=== PATIENT | male | born 1975 | race Two or more races ===

== ENCOUNTER 2024-02-21 00:05 | Inpatient (IN) | payer OTHER ==
[~2024-02-21] VITALS: Ht 180.3 cm; Wt 97.7 kg
[2024-02-21 01:25] LABS: Basophils # (auto) 0 10 ^3/uL (0-0.2); Basophils % (auto) 0.4 % (0.0-2.0); Eosinophils # (auto) 0.2 10 ^3/uL (0-0.8); Eosinophils % (auto) 1.8 % (0.0-7.0); Hematocrit 47.7 % (41.0-53.0); Hemoglobin 15.7 g/dL (13.5-17.5); Lymphocytes # (auto) 1.7 10 ^3/uL (0.4-5.4); Lymphocytes % (auto) 18.1 % (10.0-50.0); Mean Corpuscular Hemoglobin 27.3 pg (28.0-32.0); Mean Corpuscular Hgb Conc. 32.9 g/dL (32.0-36.0); Mean Corpuscular Volume 82.9 fL (80.0-100.0); Monocytes # (auto) 0.7 10 ^3/uL (0-1.3); Monocytes % (auto) 7.4 % (0.0-12.0); Neutrophils # (auto) 6.9 10 ^3/uL (1.6-8.6); Neutrophils % (auto) 72.3 % (37.0-80.0); Nucleated Red Blood Cells % 0.1 %; Platelet Count (auto) 213 10^3/uL (140-450); Red Blood Cells 5.76 10^6/uL (4.5-5.90); Red Cell Distribution Width 18.3 % (11.8-14.3); White Blood Cell 9.6 10^3/uL (4.4-10.8)
--- NOTE | 2024-02-21 01:27 | DVH ---
Exam: CT CT AB PEL WO CON-NO ORAL OR IV History: abd pain Comparison Study: None Technique: Multidetector spiral CT of the abdomen was performed from lung bases to pubic symphysis. Imaging was performed without IV contrast. Axial, coronal and sagittal multiplanar reformats were ob tained from the axial data set by the technologist. Radiation Dose : 1. Abdomen/Pelvis: CTDIvol 10.3 mGy, DLP 597.46 mGy*cm. Findings: Evaluation of solid organs is limited due to lack of intravenous contrast use. Lung Bases: No acute or significant lung base finding. Normal heart size. No pleural or pericardial effusion. Liver: The liver is normal in size. No focal lesions. Gallbladder and Biliary Tree: Distended gallbladder measuring up to 12 cm but without stones or peric holecystic fluid. Spleen: Unremarkable Pancreas: The pancreas is grossly normal in appearance. Adrenal Glands: Unremarkable Kidneys: Kidneys are grossly normal without calculi or hydronephrosis. Bladder: Grossly unremarkable for degree of distention. Bowel: The stomach is grossly normal in appearance. Small bowel and colon are normal in caliber and d istribution. Normal appendix is visualized in the right lower quadrant without findings of appendici tis. Ascites: Absent Lymphadenopathy: No mesenteric, retroperitoneal or periportal lymphadenopathy. Abdominal Wall and Mesentery: Unremarkable. Vasculature: The visualized abdominal aorta is normal in size and caliber. Evaluation of abdominal a nd pelvic vessels is limited due to lack of intravenous contrast. Pelvic Organs: Unremarkable Musculoskeletal: No aggressive focal bony lesions, acute fractures or dislocation. IMPRESSION: 1. Distended gallbladder measuring up to 12 cm but without stones or pericholecystic fluid. Cholecyst itis is not excluded. If there is right upper quadrant pain, recommend dedicated right upper quadran t ultrasound. Radiation optimization: All CT scans at this facility use at least one of these dose optimization darren hniques: automated exposure control mA and/or kV adjustment per patient size (includes targeted exam s where dose is matched to clinical indication) or iterative reconstruction.
[2024-02-21 01:43] LABS: Alkaline Phosphatase 70 U/L (46-116); Anion Gap 7 (5-15); BUN/Creatinine Ratio 10.6 (10.0-20.0); Blood Urea Nitrogen 12 mg/dL (9-23); Calcium 9.7 mg/dL (8.7-10.4); Carbon Dioxide 28 mmol/L (20-31); Chloride 103 mmol/L (98-107); Lipase 39 U/L (12-53); Potassium 4.3 mmol/L (3.5-5.1); Sodium 138 mmol/L (136-145)
[2024-02-21 01:44] LABS: Alanine Aminotransferase 40 U/L (7-40); Albumin 4.4 g/dL (3.2-4.8); Aspartate Aminotransferase 18 U/L (13-40); Bilirubin, Total 0.4 mg/dL (0.2-1.0); Glucose 150 mg/dL (74-106); Total Protein 7.5 g/dL (5.7-8.2)
--- NOTE | 2024-02-21 02:56 | ED.PDOC ---
GI ASSESSMENT HPI Comments 49-year-old male complaining of 9/10 midepigastric pain. Patient states it started at 9:00 p.m.. Nothing makes it better, nothing makes it worse. Denies any new foods no new medications. Patient reports intermittent nausea and vomiting. No diarrhea. No prior abdominal history. No prior medical history. Chief Complaint: Abdominal Pain Time Seen by MD: 00:25 Reviewed Notes: Nurses Notes Allergies: Coded Allergies: NO KNOWN ALLERGIES (Unverified , 02/21/24) Information Source: Patient Mode of Arrival: Ambulatory Past Medical History PAST MEDICAL HISTORY: Denies Surgical History: Denies all surgeries Constitutional: denies: chills, diaphoresis, fatigue, fever, malaise, sweats, weakness, others EENTM: denies: blurred vision, double vision, ear bleeding, ear discharge, ear drainage, ear pain, ear ringing, eye pain, eye redness, hearing loss, mouth pain, mouth swelling, nasal discharge, nose bleeding, nose congestion, nose pain, photophobia, tearing, throat pain, throat swelling, voice changes, others Respiratory: denies: cough, hemoptysis, orthopnea, SOB at rest, shortness of breath, SOB with excertion, stridor, wheezing, others Cardiovascular: denies: chest pain, dizzy spells, diaphoresis, Dyspnea on exertion, edema, irregular heart beat, left arm pain, lightheadedness, palpitations, PND, syncope, others Gastrointestinal: reports: abdomen distended, abdominal pain; denies: blood streaked bowels, constipated, diarrhea, dysphagia, difficulty swallowing, hematemesis, melena, nausea, poor appetite, poor fluid intake, rectal bleeding, rectal pain, vomiting, others Genitourinary: denies: burning, dysuria, flank pain, frequency, hematuria, incontinence, penile discharge, penile sore, pain, testicle pain, testicle swelling, urgency, others Neurological: denies: dizziness, fainting, headache, left sided numbness, left sided weakness, numbness, paresthesia, pre-existing deficit, right sided numbness, right sided weakness, seizure, speech problems, tingling, tremors, weakness, others Musculoskeletal: denies: back pain, gout, joint pain, joint swelling, muscle pain, muscle stiffness, neck pain, others Integumetry: denies: bruises, change in color, change in hair/nails, dryness, laceration, lesions, lumps, rash, wounds, others Allergic/Immunocompromised: denies: Difficulty Healing, Frequent Infections, Hives, Itching, others Physical Exam General Appearance: Moderate Distress, Normal HEENT: Normal ENT Inspection, Pharynx Normal, TMs Normal Neck: Full Range of Motion, Non-Tender, Normal, Normal Inspection Respiratory: Chest Non-Tender, Lungs Clear, No Accessory Muscle Use, No Respiratory Distress, Normal Breath Sounds Cardiovascular: No Edema, No JVD, No Murmur, No Gallop, Normal Peripheral Pulses, Regular Rate/Rhythm Breast Exam: Deferred Gastrointestinal: Epigastric (Tender to palpation), No Organomegaly, No Pulsatile Mass, Normal Bowel Sounds, Soft Genitalia: Deferred Pelvic: Deferred Rectal: Deferred Extremities: No calf tenderness, Normal capillary refill, Normal inspection, Normal range of motion, Non-tender, No pedal edema Musculoskeletal : Apperance: Normal Neurologic: Alert, neurosurgeon II-XII nml as Tested, No Motor Deficits, Normal Affect, Normal Mood, No Sensory Deficits Cerebellar Function: Normal Reflexes: Normal Skin: Dry, Normal Color, Warm Lymphatic: No Adenopathy Was a procedure done? Was a procedure done?: No GI differential Dx Differential Diagnosis: Appendicitis, Cholangitis, Cholecystitis, Gastritis/PUD, Gastroenteritis X-Ray, Labs, Meds, VS Vital Signs Date Time Temp Pulse Resp B/P (MAP) Pulse Ox O2 Delivery O2 Flow Rate FiO2 02/21/24 00:25 98.4 71 70 112/70 (84) 97 Lab Test 02/21/24 03:00 02/21/24 01:18 Range/Units Urine Color Yellow Yellow Urine Clarity Turbid H Clear Urine pH 5.5 5.0-9.0 Urine Specific [place] 1.032 1.001-1.035 Urine Protein 1+ H Negative Urine Ketones Trace Negative Urine Blood Negative Negative /uL Urine Nitrite Negative Negative Urine Bilirubin Negative Negative Urine Urobilinogen Normal Negative mg/dL Urine Leukocyte Esterase Negative Negative /uL Urine RBC 2 0 - 3 /hpf Urine WBC 3 0 - 3 /hpf Urine Squamous Epithelial Cells None seen <5 /hpf Urine Calcium Oxalate Crystals Few None Seen Urine Bacteria Few H None Seen /hpf Urine Mucus Few None Seen Urine Glucose Normal Normal mg/dL White Blood Count 9.6 4.4-10.8 10^3/uL Red Blood Count 5.76 4.5-5.90 10^6/uL Hemoglobin 15.7 13.5-17.5 g/dL Hematocrit 47.7 41.0-53.0 % Mean Corpuscular Volume 82.9 80.0-100.0 fL Mean Corpuscular Hemoglobin 27.3 L 28.0-32.0 pg Mean Corpuscular Hemoglobin Concent 32.9 32.0-36.0 g/dL Red Cell Distribution Width 18.3 H 11.8-14.3 % Platelet Count 213 140-450 10^3/uL Mean Platelet Volume 7.6 6.9-10.8 fL Neutrophils (%) (Auto) 72.3 37.0-80.0 % Lymphocytes (%) (Auto) 18.1 10.0-50.0 % Monocytes (%) (Auto) 7.4 0.0-12.0 % Eosinophils (%) (Auto) 1.8 0.0-7.0 % Basophils (%) (Auto) 0.4 0.0-2.0 % Neutrophils # (Auto) 6.9 1.6-8.6 10 ^3/uL Lymphocytes # (Auto) 1.7 0.4-5.4 10 ^3/uL Monocytes # (Auto) 0.7 0-1.3 10 ^3/uL Eosinophils # (Auto) 0.2 0-0.8 10 ^3/uL Basophils # (Auto) 0 0-0.2 10 ^3/uL Nucleated Red Blood Cells 0.1 % Sodium Level 138 136-145 mmol/L Potassium Level 4.3 3.5-5.1 mmol/L Chloride Level 103 98-107 mmol/L Carbon Dioxide Level 28 20-31 mmol/L Anion Gap 7 5-15 Blood Urea Nitrogen 12 9-23 mg/dL Creatinine 1.13 0.700-1.30 mg/dL Glomerular Filtration Rate Calc 80 >90 mL/min BUN/Creatinine Ratio 10.6 10.0-20.0 Serum Glucose 150 H 74-106 mg/dL Calcium Level 9.7 8.7-10.4 mg/dL Total Bilirubin 0.4 0.2-1.0 mg/dL Aspartate Amino Transferase (AST) 18 13-40 U/L Alanine Aminotransferase (ALT) 40 7-40 U/L Alkaline Phosphatase 70 46-116 U/L Total Protein 7.5 5.7-8.2 g/dL Albumin 4.4 3.2-4.8 g/dL Lipase 39 12-53 U/L X-Ray, Labs, Meds, VS Comment CT scan shows gallbladder dilated to 12 cm Gallbladder ultrasound ordered Report given to Dr. Eng at change of shift Time of 1ST Reevaluation: 02:53 Reevaluation 1ST: Improved Patient Education/Counseling: Diagnosis, Treatment Family Education/Counseling: No Family Present Departure 1 Departure Time of Disposition: 04:54 (Patient presented with abdominal pain that was concerning for possible appendicits, gastritis, cholecystitis, colitis, gastroenteritis, sbo, or orther possible surgical emergency. Data: 1. I ordered and reviewed the result of at least 3 labs including a CBC, BMP, and Urinalysis. 2. I independently interpreted the following tests: CT Abdoment and Pelvis is concerning for cholecystitis .Risk:This patient has a high risk of morbidity due to further diagnostic testing or treatment and may suffer from an acute abdominal process disorder. Workup reveals intractable abdominal pain and p atient should be admitted for further workup. and possible expert consultation. ) Impression: Primary Impression: Cholecystitis Additional Impression: Intractable abdominal pain Disposition: ADMITTED INPATIENT Admit to: Med Surg Condition: Serious Critical Care Note Critical Care Time?: Yes Critical care comment: Intractable abdominal pain Authorized and Performed by: Rick Davis MD Total critical care time: Approximately 36 minutes Due to a high probability of clinically significant, life threatening deterioration, the patient required my highest level of preparedness to intervene emergently and I personally spent this critical care time directly and personally managing the patient. This critical care time included obtaining a history; examining the patient; pulse oximetry; ordering and review of studies; arranging urgent treatment with development of a management plan; evaluation of patient's response to treatment; frequent reassessment; and, discussions with other providers. This critical care time was performed to assess and manage the high probability of imminent, life-threatening deterioration that could result in multi-organ failure. It was exclusive of separately billable procedures and treating other patients and teaching time. Please see my other sections and the rest of the note for further information on patient assessment and treatment. Stability Stability form required: No Heart Score Heart Score: Heart Score Response (Comments) Value History N/A 0 EKG N/A 0 Age N/A 0 Risk Factors N/A 0 Troponin N/A 0 Total 0 [id number] CHIN Feb 21, 2024 02:56 RICK DAVIS MD Feb 21, 2024 04:56
[2024-02-21 04:21] LABS: Urine Bacteria FEW /hpf (None Seen); Urine Blood Negative /uL (Negative); Urine Clarity Turbid (Clear); Urine Color Yellow (Yellow); Urine Mucus FEW (None Seen); Urine Protein, UAD 1+ (Negative); Urine Specific Gravity 1.032 (1.001-1.035); Urine Urobilinogen Normal (Negative); Urine WBC 3 /hpf (0 - 3); Urine pH 5.5 (5.0-9.0)
--- NOTE | 2024-02-21 04:39 | DVH ---
Examination: GBUS CLINICAL INDICATION: RUQ pain COMPARISON: None. TECHNIQUE: Using real-time ultrasonic imaging, the abdomen was examined. FINDINGS: Liver is mildly enlarged, measuring 17.7 cm with heterogenous coarse echotexture of the liver, probab le changes of liver parenchymal disease. No evidence of intrahepatic ductal dilatation. Hepatic vei ns are patent. Main portal vein shows normal hepatopetal flow. The gallbladder is mildly distended and demonstrate hyperechoic sludge within. The gallbladder wall is not thickened and measures 1.5 mm. The common bile duct measures 5 mm. anteroposteriorly, which i s normal. Increased echogenicity of the pancreas, possibility of fatty infiltration of the pancreas. Right kidney demonstrates normal morphology and cortical echogenicity, with no evidence of stones, ma sses or hydronephrosis. Right kidney measures 10.2 cm in length. IMPRESSION: 1. Mildly distended gallbladder with hyperechoic sludge within. Normal wall thickness of the gallbl adder. No features of cholecystitis. 2. Mild hepatomegaly with heterogenous coarse echotexture of liver, probable changes of liver parenc hymal disease. 3. Increased echogenicity of the pancreas possibility of fatty infiltration of the pancreas. Electronically Signed 02/21/2024 04:38 Thomas Marks
[2024-02-21] MEDS: MORPHINE SULFATE 4 MG/ML SYR/VIAL IM ONE (05:01)
[2024-02-21] MEDS: LIDOCAINE VISCOUS 2% 15ML UD MT ONE (05:01)
[2024-02-21] MEDS: ONDANSETRON ODT 4 MG TAB PO ONE (05:02)
[2024-02-21] MEDS: MAALOX PLUS or MAALOX 30 ML PO ONE (05:02)
[2024-02-21 05:04] VITALS: PULSE 82; RESP 18; O2SAT 98
--- NOTE | 2024-02-21 05:31 | DVHHPRES ---
History of Present Illness Resident Creating Document: JACQUELYN LUNA RESIDENT History of Present Illness This is a 49 years old male with no significant past medical history presented to the ED with a chief complaint of epigastric pain and vomiting 10:00 p.m. last night prior to this admission. According to the patient epigastric pain started 10:00 p.m. which was dull aching pain ,radiate to the right subcostal region ,9/10 ,without any aggravating and relieving factor and associated with few episodes of vomiting. Patient mentioned that he had flu last week but denies any sick contact, recent traveling, eating outside food or history of peptic ulcer disease. 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 The patient also denies fever, chills, malaise, dysuria or any change in bowel and bladder habit. Past Medical History None Past Surgical History Right Knee and right shoulder replacement surgery Family History None. Past Social History Lives with Family Nonsmoker, nonalcoholic and never tried any drugs Review of Systems Constitutional: No: Fever, Chills, Sweats, Weakness, Malaise, Other Eyes: No: Pain, Vision change, Conjunctivae inflammation, Eyelid inflammation, Other, Redness ENT: No: Ear pain, Ear discharge, Nose pain, Nose discharge, Nose congestion, Mouth pain, Mouth swelling, Throat pain, Throat swelling, Other Respiratory: No: Cough, Dry, Shortness of breath, SOB with excertion, Wheezing, Hemoptysis, Pleuritic Pain, Sputum, Wheezing, Other Cardiovascular: No: Chest Pain, Palpitations, Orthopnea, Paroxysmal Noc. Dyspnea, Edema, Lt Headedness, Other Gastrointestinal: Nausea, Vomiting, Abdominal Pain; No: Diarrhea, Constipation, Melena, Hematochezia, Other Genitourinary: No Dysuria, No Frequency, No Incontinence, No Hematuria, No Retention, No Other Musculoskeletal: No: other, neck pain, shoulder pain, arm pain, back pain, hand pain, leg pain, foot pain Skin: No: Rash, Lesions, Jaundice, Bruising, Other Neurological: No: Weakness, Numbness, Incoordination, Change in speech, Confusion, Seizures, Other Allergies: Coded Allergies: NO KNOWN ALLERGIES (Unverified , 02/21/24) Medications Current Medications Medications Dose Ordered Sig/Eric Route Start Time Stop Time Status Last Admin Dose Admin Sodium Chloride 1,000 ml @ 75 mls/hr [id number] IV 02/21/24 05:30 Ceftriaxone Sodium 50 ml @ 100 mls/hr DAILY IV 02/22/24 10:00 Metronidazole 100 ml @ 100 mls/hr TID IV 02/21/24 12:00 Pantoprazole Sodium 40 mg DAILY IV 02/21/24 10:00 Ondansetron HCl 4 mg [id number] IV 02/21/24 06:00 Exam Vital Signs Vital Signs Date Time Temp Pulse Resp B/P (MAP) Pulse Ox O2 Delivery O2 Flow Rate FiO2 02/21/24 05:04 82 18 98 Room Air* 0 21 02/21/24 05:04 98.0 112/75 (87) 98.0 Exam Physical examination: General Appearance: Alert, Oriented X3, Cooperative, mild distress HEENT: Atraumatic, PERRLA, EOMI, Mucous membrane moist/pink Respiratory: Clear to auscultation, Normal air movement Cardiovascular: Regular rate, Normal S1, Normal S2, No murmurs, no chest wall tenderness Abdominal: Normal bowel sounds, Soft, tenderness present in the epigastric region, No hepatospenomegaly, No masses Extremities: No clubbing, No cyanosis, No edema, Normal pulses, No tenderness/swelling Skin: No rashes, No breakdown, No significant lesion Neuro: Normal gait, Normal speech, Strength at 5/5 X4 ext, Normal tone, Sensation intact, grossly intact cranial nerves. Psych/Mental Status: Mental status NL, Mood NL Labs/Xrays Labs Test 02/21/24 03:00 02/21/24 01:18 Range/Units Urine Color Yellow Yellow Urine Clarity Turbid H Clear Urine pH 5.5 5.0-9.0 Urine Specific [place] 1.032 1.001-1.035 Urine Protein 1+ H Negative Urine Ketones Trace Negative Urine Blood Negative Negative /uL Urine Nitrite Negative Negative Urine Bilirubin Negative Negative Urine Urobilinogen Normal Negative mg/dL Urine Leukocyte Esterase Negative Negative /uL Urine RBC 2 0 - 3 /hpf Urine WBC 3 0 - 3 /hpf Urine Squamous Epithelial Cells None seen <5 /hpf Urine Calcium Oxalate Crystals Few None Seen Urine Bacteria Few H None Seen /hpf Urine Mucus Few None Seen Urine Glucose Normal Normal mg/dL White Blood Count 9.6 4.4-10.8 10^3/uL Red Blood Count 5.76 4.5-5.90 10^6/uL Hemoglobin 15.7 13.5-17.5 g/dL Hematocrit 47.7 41.0-53.0 % Mean Corpuscular Volume 82.9 80.0-100.0 fL Mean Corpuscular Hemoglobin 27.3 L 28.0-32.0 pg Mean Corpuscular Hemoglobin Concent 32.9 32.0-36.0 g/dL Red Cell Distribution Width 18.3 H 11.8-14.3 % Platelet Count 213 140-450 10^3/uL Mean Platelet Volume 7.6 6.9-10.8 fL Neutrophils (%) (Auto) 72.3 37.0-80.0 % Lymphocytes (%) (Auto) 18.1 10.0-50.0 % Monocytes (%) (Auto) 7.4 0.0-12.0 % Eosinophils (%) (Auto) 1.8 0.0-7.0 % Basophils (%) (Auto) 0.4 0.0-2.0 % Neutrophils # (Auto) 6.9 1.6-8.6 10 ^3/uL Lymphocytes # (Auto) 1.7 0.4-5.4 10 ^3/uL Monocytes # (Auto) 0.7 0-1.3 10 ^3/uL Eosinophils # (Auto) 0.2 0-0.8 10 ^3/uL Basophils # (Auto) 0 0-0.2 10 ^3/uL Nucleated Red Blood Cells 0.1 % Sodium Level 138 136-145 mmol/L Potassium Level 4.3 3.5-5.1 mmol/L Chloride Level 103 98-107 mmol/L Carbon Dioxide Level 28 20-31 mmol/L Anion Gap 7 5-15 Blood Urea Nitrogen 12 9-23 mg/dL Creatinine 1.13 0.700-1.30 mg/dL Glomerular Filtration Rate Calc 80 >90 mL/min BUN/Creatinine Ratio 10.6 10.0-20.0 Serum Glucose 150 H 74-106 mg/dL Calcium Level 9.7 8.7-10.4 mg/dL Total Bilirubin 0.4 0.2-1.0 mg/dL Aspartate Amino Transferase (AST) 18 13-40 U/L Alanine Aminotransferase (ALT) 40 7-40 U/L Alkaline Phosphatase 70 46-116 U/L Total Protein 7.5 5.7-8.2 g/dL Albumin 4.4 3.2-4.8 g/dL Lipase 39 12-53 U/L Assessment/Plan Assessment/Plan Assessment and plan: # Abdominal pain, rule out acute cholecystitis - NPO - IV normal saline at 75 mL/hour - CT abdomen pelvis revealed distended gallbladder measuring up to 12 cm but without stones or pericholecystic fluid - U/S of GB demonstrated mildly distended gallbladder with hyperechoic sludge within - IV ondansetron 4 mg q.4 p.r.n. - IV ceftriaxone 1 g daily and IV metronidazole 500 mg t.i.d. - Consulted surgery. # PUD prophylaxis - IV Protonix 40 mg daily. Goal of care discussed with the patient for more than 20 minutes full code Plan of treatment discussed with Dr. Andrade Plan discussed with: Patient, Other My Orders Orders - JACQUELYN LUNA RESIDENT Procedure Category Date Status Time Admit ADMIT 02/21/24 Transmitted 05:17 Sodium Chloride 0.9% PHA 02/21/24 In Process 05:30 Ceftriaxone 1gm/50ml PHA 02/22/24 In Process D5w (Rocephin) 10:00 Metronidazole PHA 02/21/24 In Process 500mg/100ml (Flagyl 12:00 Pantoprazole PHA 02/21/24 In Process (Protonix) 10:00 Npo (Nothing By DIET 02/21/24 Transmitted Mouth) Diet Breakfast Ondansetron Hcl PHA 02/21/24 In Process (Zofran) 06:00 Chest Xray 1 View XY 02/21/24 Logged 05:17 PTPTT LAB 02/21/24 Logged 05:17 Blood Alcohol LAB 02/21/24 Logged 05:28 Drug Screen LAB 02/21/24 Logged 05:28 * Surgical Consult CONS 02/21/24 Transmitted Thyroid Stimulating LAB 02/21/24 Verified Hormone 05:30 Date of Service: Feb 21, 2024 Billing Provider: JAQUELINE ANDRADE MD Common Visit Codes: [id number] INP/OBS CARE (HIGH) JACQUELYN LUNA RESIDENT Feb 21, 2024 05:31 JAQUELINE ANDRADE MD Feb 21, 2024 09:59
[2024-02-21 05:59] LABS: Opiate Scree,Urine Neg (NEGATIVE); Phencyclidine Screen, Urine Neg (NEGATIVE)
--- NOTE | 2024-02-21 06:09 | DVH ---
CHEST RADIOGRAPH Indication: chest pain Technique: Single frontal view of the chest was obtained Comparison: None FINDINGS: Lines and Tubes: None Lungs: No focal consolidation. Pleura: No effusion. No pneumothorax. Cardiomediastinal contours: Unremarkable Bones: No acute osseous abnormality. IMPRESSION: 1. No acute cardiopulmonary disease.
[2024-02-21 06:17] LABS: Amphetamine Screen, Urine Neg (NEGATIVE); Barbiturate Scree,Urine Neg (NEGATIVE); Benzodiazephine Screen, Urine Neg (NEGATIVE); Cannabinoid Screen, Urine Neg (NEGATIVE); Cocaine Screen, Urine Neg (NEGATIVE)
[2024-02-21 06:18] LABS: INR 0.95 (0.9-1.15); Partial Thromboplastin Time 25.9 SEC (24.5-34.5); Prothrombin Time 10.1 sec (9.3-11.8)
[2024-02-21] MEDS: SODIUM CHLORIDE 0.9% 1,000 ML IV SCH (06:45)
[2024-02-21] MEDS: ONDANSETRON HCL 4 MG/2 ML VIAL IV SCH (07:51)
[2024-02-21] MEDS: metroNIDAZOLE 500MG/100ML 100 ML IV ONE (07:53)
[2024-02-21 08:00] VITALS: TEMP 99.5
[2024-02-21] MEDS: ceFAZolin 2 GM/D5W50ml 50 ML IV ONE (09:18)
[2024-02-21] MEDS: PANTOPRAZOLE 40 MG/10 ML VIAL INJ IV SCH (10:08)
[2024-02-21 12:00] VITALS: BP 119/70; PULSE 92; RESP 19; O2SAT 95
[2024-02-21] MEDS ORDERED: metroNIDAZOLE 500MG/100ML 100 ML IV SCH (12:00)
--- NOTE | 2024-02-21 12:53 | DVHDSRES ---
Discharge Summary Date of Admission Resident Creating Document: JACQUELYN LUNA RESIDENT Feb 21, 2024 at 05:17 Date of Discharge: Feb 21, 2024 Admitting Diagnosis Intractable abdominal pain Labs/Diagnostic Data: Laboratory Results Test 02/21/24 03:00 02/21/24 01:18 Urine Color Yellow (Yellow) Urine Clarity Turbid (Clear) Urine pH 5.5 (5.0-9.0) Urine Specific Christine 1.032 (1.001-1.035) Urine Protein 1+ (Negative) Urine Ketones Trace (Negative) Urine Blood Negative /uL (Negative) Urine Nitrite Negative (Negative) Urine Bilirubin Negative (Negative) Urine Urobilinogen Normal mg/dL (Negative) Urine Leukocyte Esterase Negative /uL (Negative) Urine RBC 2 /hpf (0 - 3) Urine WBC 3 /hpf (0 - 3) Urine Squamous Epithelial Cells None seen /hpf (<5) Urine Calcium Oxalate Crystals Few (None Seen) Urine Bacteria Few /hpf (None Seen) Urine Mucus Few (None Seen) Urine Glucose Normal mg/dL (Normal) Urine Opiates Screen Neg (NEGATIVE) Urine Fentanyl Screen Neg (NEGATIVE) Urine Barbiturates Screen Neg (NEGATIVE) Urine Phencyclidine Screen Neg (NEGATIVE) Urine Amphetamines Screen Neg (NEGATIVE) Urine Benzodiazepines Screen Neg (NEGATIVE) Urine Cocaine Screen Neg (NEGATIVE) Urine Cannabinoids Screen Neg (NEGATIVE) White Blood Count 9.6 10^3/uL (4.4-10.8) Red Blood Count 5.76 10^6/uL (4.5-5.90) Hemoglobin 15.7 g/dL (13.5-17.5) Hematocrit 47.7 % (41.0-53.0) Mean Corpuscular Volume 82.9 fL (80.0-100.0) Mean Corpuscular Hemoglobin 27.3 pg (28.0-32.0) Mean Corpuscular Hemoglobin Concent 32.9 g/dL (32.0-36.0) Red Cell Distribution Width 18.3 % (11.8-14.3) Platelet Count 213 10^3/uL (140-450) Mean Platelet Volume 7.6 fL (6.9-10.8) Neutrophils (%) (Auto) 72.3 % (37.0-80.0) Lymphocytes (%) (Auto) 18.1 % (10.0-50.0) Monocytes (%) (Auto) 7.4 % (0.0-12.0) Eosinophils (%) (Auto) 1.8 % (0.0-7.0) Basophils (%) (Auto) 0.4 % (0.0-2.0) Neutrophils # (Auto) 6.9 10 ^3/uL (1.6-8.6) Lymphocytes # (Auto) 1.7 10 ^3/uL (0.4-5.4) Monocytes # (Auto) 0.7 10 ^3/uL (0-1.3) Eosinophils # (Auto) 0.2 10 ^3/uL (0-0.8) Basophils # (Auto) 0 10 ^3/uL (0-0.2) Nucleated Red Blood Cells 0.1 % Prothrombin Time 10.1 sec (9.3-11.8) Prothrombin Time INR 0.95 (0.9-1.15) Activated Partial Thromboplast Time 25.9 SEC (24.5-34.5) Sodium Level 138 mmol/L (136-145) Potassium Level 4.3 mmol/L (3.5-5.1) Chloride Level 103 mmol/L (98-107) Carbon Dioxide Level 28 mmol/L (20-31) Anion Gap 7 (5-15) Blood Urea Nitrogen 12 mg/dL (9-23) Creatinine 1.13 mg/dL (0.700-1.30) Glomerular Filtration Rate Calc 80 mL/min (>90) BUN/Creatinine Ratio 10.6 (10.0-20.0) Serum Glucose 150 mg/dL (74-106) Calcium Level 9.7 mg/dL (8.7-10.4) Total Bilirubin 0.4 mg/dL (0.2-1.0) Aspartate Amino Transferase (AST) 18 U/L (13-40) Alanine Aminotransferase (ALT) 40 U/L (7-40) Alkaline Phosphatase 70 U/L (46-116) Total Protein 7.5 g/dL (5.7-8.2) Albumin 4.4 g/dL (3.2-4.8) Lipase 39 U/L (12-53) Thyroid Stimulating Hormone (TSH) 1.56 uIU/mL (0.55-4.78) Plasma/Serum Blood Alcohol < 3.0 mg/dL (<10) Other Laboratory Tests 02/21/24 01:18 Brief Hx & Hospital Course: This is a 49 years old male with no significant past medical history presented to the ED with a chief complaint of epigastric pain and vomiting 10:00 p.m. last night prior to this admission. According to the patient epigastric pain started 10:00 p.m. which was dull aching pain ,radiate to the right subcostal region ,9/10 ,without any aggravating and relieving factor and associated with few episodes of vomiting. Patient mentioned that he had flu last week but denies any sick contact, recent traveling, eating outside food or history of peptic ulcer disease. 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 The patient also denies fever, chills, malaise, dysuria or any change in bowel and bladder habit Hospital course: CT AP showed Distended gallbladder measuring up to 12 cm but without stones or pericholecystic fluid. Cholecystitis is not excluded. If there is right upper quadrant pain, recommend dedicated right upper quadrant ultrasound. gall bladder usg showed Mildly distended gallbladder with hyperechoic sludge within. Normal wall thickness of the gallbladder. No features of cholecystitis. Mild hepatomegaly with heterogenous coarse echotexture of liver, probable changes of liver parenchymal disease. Increased echogenicity of the pancreas possibility of fatty infiltration of the pancreas. serum lipase was 39, wbc 9.6. Patient noticed significant improvement in his abdominal pain after receiving Maalox, viscous lidocaine and IV Protonix. He appeared well, had stable vital signs and denied any active ongoing complaints or concerns. Patient was discharged on pantoprazole 40 mg for 7 days and instructed to follow up with his PCP in 1-2 weeks. His hospital course was uncomplicated. General Appearance: Cooperative. Well developed. Well nourished. NAD Head Exam: Normal inspection Neck Exam: Normal inspection. Non-tender. Normal alignment Pulmonary/Respiratory: Chest non-tender. Clear bilateral breath sounds, no crackles, no wheezing. Cardiovascular/Chest: Regular rate and rhythm. No murmurs. No JVD. Peripheral Pulses: 2+ Radial (R). 2+ Radial (L). 2+ Pedal (R). 2+ Pedal (L) Abdominal Exam: Normal bowel sounds. Soft. normal abdomen, no visible veins, Nontender. No hepatospenomegaly. No masses Ankle Exam: Negative ankle edema Lower extremities: Negative lower extremity edema Neuro/Mental Status: A&O x4. Coherent. Thoughts/Psych: Normal thought pattern. Appropriate mood and affect. Good judgement and insight Skin Exam: Normal inspection. Normal color. Warm. Dry Condition at Discharge: Good Final Diagnosis/Problems List Abdominal pain, ruled out acute cholecystitis likely fufnctional dyspepsia/gastritis Discharge Disposition: Home Discharge Instruct/Medications Diet: Regular Activity: No Restrictions, As Tolerated Follow Up/Referral: please follow up with pcp in 1-2 weeks Medications: protonix once a day for 7 days Discharge Statement: "Patient was advised to return to the ER or call 911 if any headaches, dizziness, shortness of breath, chest pain, abdominal pain, bleeding, fevers, or worsening of medical condition. Patient was counseled about treatment plan, medications, possible side effects, patientverbalized understanding. All questions were answered to the best of my ability. This discharge took greater then 30 minutes in planning, reviewing documentation, counseling the patient, and discussing with other team members." ASSESSMENT ASSESSMENT Assessment Abdominal pain, ruled out acute cholecystitis likely fufnctional dyspepsia/gastritis Date of Service: Feb 21, 2024 Billing Provider: NATALIIA ARNOLD MD Common Visit Codes: 30190-IXN/OBS DISCH DAY >30min SWAPNIL HOLLOWAY Feb 21, 2024 12:53 NATALIIA ARNOLD MD Feb 22, 2024 12:59
[2024-02-21] MEDS ORDERED: PANT40T PO (12:54)
[2024-02-22] MEDS ORDERED: cefTRIAXone 1GM/50ML D5W 50 ML IV SCH (10:00)
== END 2024-02-21 13:34 | disposition home or self-care (01) | DRG 392 ==
LOC: ER 00:05 → OVERFLOW 05:17
PROVIDERS: ADMIT Student in an Organized Health Care Education/Training Program; ATTEND Emergency Medicine
DX: K29.70 Gastritis, unspecified, without bleeding (principal); R16.0 Hepatomegaly, not elsewhere classified
CPT/HCPCS: 36415; 71045; 74176; 76705; 80053; 80307; 80320; 81001; 83690; 84443; 85025; 85610; 85730; G0378; J2405; J2470; J3490; Q0162

== ENCOUNTER 2024-09-05 03:49 | Emergency (ER) | payer OTHER ==
[~2024-09-05] VITALS: Ht 180.3 cm; Wt 101.8 kg
[~2024-09-05 03:49] MED LIST: PANT40T PO
[2024-09-05 04:06] VITALS: BP 131/70; PULSE 62; RESP 18; TEMP 98.4; O2SAT 98
[2024-09-05] MEDS ORDERED: SODIUM CHLORIDE 0.9% 1,000 ML IV ONE (04:15)
[2024-09-05] MEDS ORDERED: MORPHINE SULFATE 4 MG/ML SYR/VIAL IV ONE (04:15)
[2024-09-05] MEDS ORDERED: ONDANSETRON ODT 4 MG TAB PO ONE (04:15)
--- NOTE | 2024-09-05 04:24 | ED.PDOC ---
GI ASSESSMENT HPI Comments 49 year old male presents to ER with complaints of abdominal pain x 4 hours. Patient states he started experiencing 9/10 RUQ abdominal pain without radiation with 1 episode of nausea/vomiting 4 hours prior to arrival to ER. States he took ibuprofen for his pain without relief and presents to ER ambulatory on arrival, with steady gait, in mild distress with vitals stable. Denies fever, hematemesis, shortness of breath, chest pain, back pain, changes in urination/bm or any further symptoms/complaints Chief Complaint: Abdominal Pain Time Seen by MD: 04:08 Primary Care Provider: SIDDHARTH Reviewed Notes: Nurses Notes, Medications, Allergies Allergies: Coded Allergies: NO KNOWN ALLERGIES (Unverified , 02/21/24) Home Meds Active Scripts Pantoprazole Sodium Sesquihydr (Pantoprazole Sodium) 40 Mg Tab, 40 MG PO DAILY for 7 Days, #7 TAB Prov:JEWELSWAPNIL RESIDENT 02/21/24 Information Source: Patient Mode of Arrival: Ambulatory Past Medical History PAST MEDICAL HISTORY: Denies Surgical History (Other): Right knee surgery Right shoulder surgery Family History Family History: Unknown Social History Smoker: Non-Smoker Alcohol: Denies ETOH Use Drugs: Denies Drug Use Lives In: Home Constitutional: denies: chills, diaphoresis, fatigue, fever, malaise, sweats, weakness, others EENTM: denies: blurred vision, double vision, ear bleeding, ear discharge, ear drainage, ear pain, ear ringing, eye pain, eye redness, hearing loss, mouth pain, mouth swelling, nasal discharge, nose bleeding, nose congestion, nose pain, photophobia, tearing, throat pain, throat swelling, voice changes, others Respiratory: denies: cough, hemoptysis, orthopnea, SOB at rest, shortness of breath, SOB with excertion, stridor, wheezing, others Cardiovascular: denies: chest pain, dizzy spells, diaphoresis, Dyspnea on exertion, edema, irregular heart beat, left arm pain, lightheadedness, palpitations, PND, syncope, others Gastrointestinal: reports: others (As stated in HPI) Genitourinary: denies: burning, dysuria, flank pain, frequency, hematuria, incontinence, penile discharge, penile sore, pain, testicle pain, testicle swelling, urgency, others Neurological: denies: dizziness, fainting, headache, left sided numbness, left sided weakness, numbness, paresthesia, pre-existing deficit, right sided numbness, right sided weakness, seizure, speech problems, tingling, tremors, weakness, others Musculoskeletal: denies: back pain, gout, joint pain, joint swelling, muscle pain, muscle stiffness, neck pain, others Integumetry: denies: bruises, change in color, change in hair/nails, dryness, laceration, lesions, lumps, rash, wounds, others Allergic/Immunocompromised: denies: Difficulty Healing, Frequent Infections, Hives, Itching, others Hematologic/Lymphatic: denies: anemia, blood clots, easy bleeding, easy bruising, swollen glands, others Endocrine: denies: excessive hunger, excessive sweating, excessive thirst, excessive urination, flushing, intolerance to cold, intolerance to heat, unex plained weight gain, unexplained weight loss, others Psychiatric: denies: anxiety, bipolar disorder, depression, hopeless, panic disorder, schizophrenia, sleepless, suicidal, others Physical Exam General Appearance: Mild Distress (Due to RUQ abdominal pain), Obese HEENT: Normal ENT Inspection, PERRL/EOMI, Pharynx Normal, TMs Normal Neck: Full Range of Motion, Non-Tender, Normal Respiratory: Chest Non-Tender, Lungs Clear, No Accessory Muscle Use, No Respiratory Distress, Normal Breath Sounds Cardiovascular: No Murmur, No Gallop, Regular Rate/Rhythm Breast Exam: Deferred Gastrointestinal: No Organomegaly, No Pulsatile Mass, Normal Bowel Sounds, RUQ (TTP to right upper quadrant of abdomen noted. +Tamez's sign. No rebound/guarding noted), Soft Genitalia: Deferred Pelvic: Deferred Rectal: Deferred Extremities: Normal capillary refill, Normal range of motion Neurologic: Alert, blending tank tender II-XII nml as Tested, No Motor Deficits, No Sensory Deficits Cerebellar Function: Normal Reflexes: Normal Skin: Dry, Normal Color, Warm Lymphatic: No Adenopathy Was a procedure done? Was a procedure done?: No Sedation Sedation?: No GI differential Dx Differential Diagnosis: Cholecystitis, GI hemorrhage, Ischemic Bowel, Trauma intraabdominal X-Ray, Labs, Meds, VS Vital Signs Date Time Temp Pulse Resp B/P (MAP) Pulse Ox O2 Delivery O2 Flow Rate FiO2 09/05/24 04:06 98.4 62 18 131/70 (90) 98 98.4 Lab Test 09/05/24 04:20 09/05/24 04:08 Range/Units White Blood Count 10.5 4.4-10.8 10^3/uL Red Blood Count 5.38 4.5-5.90 10^6/uL Hemoglobin 16.3 13.5-17.5 g/dL Hematocrit 48.1 41.0-53.0 % Mean Corpuscular Volume 89.4 80.0-100.0 fL Mean Corpuscular Hemoglobin 30.4 28.0-32.0 pg Mean Corpuscular Hemoglobin Concent 34.0 32.0-36.0 g/dL Red Cell Distribution Width 14.7 H 11.8-14.3 % Platelet Count 279 140-450 10^3/uL Mean Platelet Volume 7.8 6.9-10.8 fL Neutrophils (%) (Auto) 74.9 37.0-80.0 % Lymphocytes (%) (Auto) 18.1 10.0-50.0 % Monocytes (%) (Auto) 4.8 0.0-12.0 % Eosinophils (%) (Auto) 1.7 0.0-7.0 % Basophils (%) (Auto) 0.5 0.0-2.0 % Neutrophils # (Auto) 7.8 1.6-8.6 10 ^3/uL Lymphocytes # (Auto) 1.9 0.4-5.4 10 ^3/uL Monocytes # (Auto) 0.5 0-1.3 10 ^3/uL Eosinophils # (Auto) 0.2 0-0.8 10 ^3/uL Basophils # (Auto) 0.1 0-0.2 10 ^3/uL Nucleated Red Blood Cells 0.1 % Sodium Level 138 136-145 mmol/L Potassium Level 3.7 3.5-5.1 mmol/L Chloride Level 104 98-107 mmol/L Carbon Dioxide Level 27 20-31 mmol/L Anion Gap 7 5-15 Blood Urea Nitrogen 9 9-23 mg/dL Creatinine 1.19 0.700-1.30 mg/dL Glomerular Filtration Rate Calc 75 >90 mL/min BUN/Creatinine Ratio 7.6 L 10.0-20.0 Serum Glucose 137 H 74-106 mg/dL Calcium Level 8.9 8.7-10.4 mg/dL Total Bilirubin 0.4 0.2-1.0 mg/dL Aspartate Amino Transferase (AST) 21 13-40 U/L Alanine Aminotransferase (ALT) 22 7-40 U/L Alkaline Phosphatase 60 46-116 U/L Total Protein 7.3 5.7-8.2 g/dL Albumin 4.3 3.2-4.8 g/dL Lipase 26 12-53 U/L Urine Color Yellow Yellow Urine Clarity Clear Clear Urine pH 6.0 5.0-9.0 Urine Specific [place] 1.028 1.001-1.035 Urine Protein Trace H Negative Urine Ketones 1+ H Negative Urine Blood Negative Negative /uL Urine Nitrite Negative Negative Urine Bilirubin Negative Negative Urine Urobilinogen Normal Negative mg/dL Urine Leukocyte Esterase Negative Negative /uL Urine RBC None seen 0 - 3 /hpf Urine Microscopic WBC 1 0-3 /HPF Urine Squamous Epithelial Cells None seen <5 /hpf Urine Bacteria None seen None Seen /hpf Urine Mucus Few None Seen Urine Glucose Normal Normal mg/dL PATIENT: PRISCILA COSTELLO RODRIGOACCT: [id number] UNIT: [id number] : 1975 LOC: ER ROOM / BED: / AGE / SEX: 49 / M ADM STATUS: REG ER SERVICE [id number] ORDERING PHYSICIAN: LEIDY ROMAN PROCEDURE(s): GBUS - GALLBLADDER REASON: RUQ abdominal pain ORDER NUMBER(s): [id number], ACCESSION NUMBER(s): [id number] INDICATION: RUQ abdominal pain TECHNIQUE: Multiple real-time sonographic images were obtained of the right upper quadrant. COMPARISON: US GALLBLADDER on DOS: 02/21/24 FINDINGS: The liver demonstrates homogeneous echotexture without focal mass lesions. The liver measures 18.0 cm. There is no intrahepatic ductal dilatation. The common duct measures 0.7 cm and is mildly prominent. Cholelithiasis is present. The gallbladder wall measures 0.3 cm. The right kidney measures 10.3 cm. The right kidney is normal in contour, size, and shape. The echogenicity is normal. There is no hydronephrosis. The pancreas is not well visualized due to overlying bowel gas. IMPRESSION: Cholelithiasis. Common bile duct is prominent measuring 0.7 cm. Hepatomegaly. ATED BY: GARTH HARTLEY MD DICTATED DATE/TIME: 09/05/24508 SIGNED BY: GARTH HARTLEY MD SIGNED DATE/TIME: 09/05/24508 CC: PATIENT: PRISCILA COSTELLOOACCT: [id number] UNIT: [id number] : 1975 LOC: ER ROOM / BED: / AGE / SEX: 49 / M ADM STATUS: REG ER SERVICE 041 ORDERING PHYSICIAN: LEIDY ROMAN PROCEDURE(s): ABPL - CT AB PEL WO CON-NO ORAL OR IV REASON: RUQ abdominal pain ORDER NUMBER(s): [id number], ACCESSION NUMBER(s): [id number] Exam: CT CT AB PEL WO CON-NO ORAL OR IV History: RUQ abdominal pain Comparison Study: CT CT AB PEL WO CON-NO ORAL OR IV on DOS: 02/21/24 Technique: Multidetector spiral CT of the abdomen was performed from lung bases to pubic symphysis. Imaging was performed without IV contrast. Axial, coronal and sagittal multiplanar reformats were obtained from the axial data set by the technologist. Radiation Dose : 1. Abdomen/Pelvis: CTDIvol 11.44 mGy, DLP 655.95 mGy*cm. Findings: Evaluation of solid organs is limited due to lack of intravenous contrast use. Lung Bases: No acute or significant lung base finding. Normal heart size. No pleural or pericardial effusion. Liver: The liver is normal in size. No focal lesions. Gallbladder and Biliary Tree: Moderate gallbladder distention and increased density within the fundus which may represent sludge, wall thickening or intramural mass. Spleen: Unremarkable Pancreas: The pancreas is grossly normal in appearance. Adrenal Glands: Unremarkable Kidneys: Kidneys are grossly normal without calculi or hydronephrosis. Bladder: Grossly unremarkable for degree of distention. Bowel: Small hiatal hernia. The stomach is grossly normal in appearance. Small bowel and colon are normal in caliber and distribution. The appendix is normal. Ascites: Absent Lymphadenopathy: No mesenteric, retroperitoneal or periportal lymphadenopathy. Abdominal Wall and Mesentery: Unremarkable. Vasculature: The visualized abdominal aorta is normal in size and caliber. Evaluation of abdominal and pelvic vessels is limited due to lack of intravenous contrast. Pelvic Organs: Unremarkable. Fat containing bilateral inguinal hernias. Musculoskeletal: No aggressive focal bony lesions, acute fractures or dislocation. IMPRESSION: 1. Moderate gallbladder distention and increased density within the gallbladder fundus. Considerations include immobile sludge, wall thickening and intramural mass. Right upper quadrant ultrasound may be of further benefit. Radiation optimization: All CT scans at this facility use at least one of these dose optimization techniques: automated exposure control mA and/or kV adjustment per patient size (includes targeted exams where dose is matched to clinical indication) or iterative reconstruction. ATED BY: PHONG MAYFIELD MD DICTATED DATE/TIME: 09/05/24450 SIGNED BY: PHONG MAYFIELD MD SIGNED DATE/TIME: 09/05/24450 CC: CBC reviewed - unremarkable CMP reviewed without any significant abnormalities CT abdomen/pelvis w/o contrast reviewed Gallbladder ultrasound reviewed Hep-lock IV ordered Morphine 4 mg IV ordered Protonix 40 mg IV ordered Zofran 4 mg PO ordered Rocephin 1 g IV ordered Metronidazole 500 mg IV ordered Patient presents with 9/10 RUQ abdominal pain and gallbladder ultrasound reveals cholelithiasis with common bile duct dilation Patient put up for admission orders to hospitalist for need for GI consult, pain control and r/o choledocholithiasis Images Reviewed?: Images reviewed and evaluated by me Time of 1ST Reevaluation: 04:22 Reevaluation 1ST: N/A Patient Education/Counseling: Diagnosis, Treatment, Prognosis, Need For Follow Up Family Education/Counseling: No Family Present SEPSIS Sepsis Screen Date sepsis recognized/suspect: Sep 05, 2024 Time Sepsis recognized/suspect: 0 Recent Procedure: No On Antibiotic Therapy: No Respiratory Rate >20: No Heart Rate >90: No Temp<36 C (96.8 F) or >38.3 C: No SBP <90 or MAP <65 mmHG: No New Acute Mental Status Change: No Is the patient on CPAP, BIPAP,: No Physician Orders Gallbladder (09/05/24 04:08) Heplock Iv (09/05/24 ) Ct Ab Pel Wo Con-No Oral Or Iv (09/05/24 04:13) Vital Signs Date Time Temp Pulse Resp B/P (MAP) Pulse Ox O2 Delivery O2 Flow Rate FiO2 09/05/24 04:06 98.4 62 18 131/70 (90) 98 98.4 Laboratory Tests Test 09/05/24 04:20 White Blood Count 10.5 10^3/uL (4.4-10.8) Departure 1 Departure Time of Disposition: 05:32 Impression: Primary Impression: Cholelithiasis Qualified Codes: K80.40 - Calculus of bile duct with cholecystitis, unspecified, without obstruction Additional Impressions: Intractable abdominal pain Common bile duct dilatation Disposition: ADMITTED INPATIENT Condition: Stable Critical Care Note Critical Care Time?: No Stability Stability form required: No Heart Score Heart Score: Heart Score Response (Comments) Value History N/A 0 EKG N/A 0 Age N/A 0 Risk Factors N/A 0 Troponin N/A 0 Total 0 LEIDY ROMAN Sep 05, 2024 04:24
[2024-09-05] MEDS ORDERED: PANTOPRAZOLE 40 MG/10 ML VIAL INJ IV ONE (04:30)
[2024-09-05 04:37] LABS: Hematocrit 48.1 % (41.0-53.0); Hemoglobin 16.3 g/dL (13.5-17.5); Mean Corpuscular Hemoglobin 30.4 pg (28.0-32.0); Mean Corpuscular Volume 89.4 fL (80.0-100.0); Nucleated Red Blood Cells % 0.1 %
--- NOTE | 2024-09-05 04:54 | DVH ---
Exam: CT CT AB PEL WO CON-NO ORAL OR IV History: RUQ abdominal pain Comparison Study: CT CT AB PEL WO CON-NO ORAL OR IV on DOS: 02/21/24 Technique: Multidetector spiral CT of the abdomen was performed from lung bases to pubic symphysis. I maging was performed without IV contrast. Axial, coronal and sagittal multiplanar reformats were obta ined from the axial data set by the technologist. Radiation Dose : 1. Abdomen/Pelvis: CTDIvol 11.44 mGy, DLP 655.95 mGy*cm. Findings: Evaluation of solid organs is limited due to lack of intravenous contrast use. Lung Bases: No acute or significant lung base finding. Normal heart size. No pleural or pericardial effusion. Liver: The liver is normal in size. No focal lesions. Gallbladder and Biliary Tree: Moderate gallbladder distention and increased density within the fundus which may represent sludge, wall thickening or intramural mass. Spleen: Unremarkable Pancreas: The pancreas is grossly normal in appearance. Adrenal Glands: Unremarkable Kidneys: Kidneys are grossly normal without calculi or hydronephrosis. Bladder: Grossly unremarkable for degree of distention. Bowel: Small hiatal hernia. The stomach is grossly normal in appearance. Small bowel and colon are no rmal in caliber and distribution. The appendix is normal. Ascites: Absent Lymphadenopathy: No mesenteric, retroperitoneal or periportal lymphadenopathy. Abdominal Wall and Mesentery: Unremarkable. Vasculature: The visualized abdominal aorta is normal in size and caliber. Evaluation of abdominal a nd pelvic vessels is limited due to lack of intravenous contrast. Pelvic Organs: Unremarkable. Fat containing bilateral inguinal hernias. Musculoskeletal: No aggressive focal bony lesions, acute fractures or dislocation. IMPRESSION: 1. Moderate gallbladder distention and increased density within the gallbladder fundus. Consideratio ns include immobile sludge, wall thickening and intramural mass. Right upper quadrant ultrasound may be of further benefit. Radiation optimization: All CT scans at this facility use at least one of these dose optimization darren hniques: automated exposure control mA and/or kV adjustment per patient size (includes targeted exam s where dose is matched to clinical indication) or iterative reconstruction.
--- NOTE | 2024-09-05 05:12 | DVH ---
INDICATION: RUQ abdominal pain TECHNIQUE: Multiple real-time sonographic images were obtained of the right upper quadrant. COMPARISON: US GALLBLADDER on DOS: 02/21/24 FINDINGS: The liver demonstrates homogeneous echotexture without focal mass lesions. The liver measures 18.0 cm . There is no intrahepatic ductal dilatation. The common duct measures 0.7 cm and is mildly prominent. Cholelithiasis is present. The gallbladder wall measures 0.3 cm. The right kidney measures 10.3 cm. The right kidney is normal in contour, size, and shape. The echoge nicity is normal. There is no hydronephrosis. The pancreas is not well visualized due to overlying bowel gas. IMPRESSION: Cholelithiasis. Common bile duct is prominent measuring 0.7 cm. Hepatomegaly.
[2024-09-05 05:33] LABS: Alanine Aminotransferase 22 U/L (7-40); Albumin 4.3 g/dL (3.2-4.8); Alkaline Phosphatase 60 U/L (46-116); Anion Gap 7 (5-15); BUN/Creatinine Ratio 7.6 (10.0-20.0); Bilirubin, Total 0.4 mg/dL (0.2-1.0); Calcium 8.9 mg/dL (8.7-10.4); Carbon Dioxide 27 mmol/L (20-31); Chloride 104 mmol/L (98-107); Lipase 26 U/L (12-53); Potassium 3.7 mmol/L (3.5-5.1); Sodium 138 mmol/L (136-145); Total Protein 7.3 g/dL (5.7-8.2)
[2024-09-05 05:45] LABS: Blood Urea Nitrogen 9 mg/dL (9-23); Glucose 137 mg/dL (74-106)
[2024-09-05 06:33] LABS: Urine Protein, UAD TRACE (Negative)
== END 2024-09-05 09:30 | disposition left against medical advice (07) ==
LOC: ER 03:49
DX: K80.20 Calculus of gallbladder without cholecystitis without obstruction (principal); R10.31 Right lower quadrant pain; K82.8 Other specified diseases of gallbladder; Z79.899 Other long term (current) drug therapy
CPT/HCPCS: 36415; 74176; 76705; 80053; 81001; 83690; 85025

== ENCOUNTER 2024-09-18 03:10 | Inpatient (IN) | payer OTHER ==
[~2024-09-18] VITALS: Ht 180.3 cm; Wt 104.0 kg
--- NOTE | 2024-09-18 03:58 | ED.PDOC ---
History of Present Illness HPI Comments 49 y/o M presents with c/c epigastric abdominal pain, that radiates to his back, with associated nausea and vomiting. Patient endorses on sudden and unprovoked onset of symptoms at 0000, this morning. Pain has been progressively worsening since then. No reported medication use prior to arrival. He reports 2x prior visits in February 20, 2025 and September 05, 2024 for same symptoms, with the latter findings showing gallstones without obstruction. No recent known injuries, sick contact, spoiled food consumption, illicit substance use, or lifestyle changes endorsed. Patient denies on having any bloody or bilious vomitus, diarrhea, constipation, urinary symptoms, fever, chills, or further associated symptoms. Upon arrival to ED triage, patient was found hypertensive at 154/85. No history of HTN. Time Seen by MD: 03:40 Primary Care Provider: SIDDHARTH Huber Notes: Nurses Notes, Medications, Allergies Allergies: Coded Allergies: NO KNOWN ALLERGIES (Unverified , 02/21/24) Home Meds Active Scripts Pantoprazole Sodium Sesquihydr (Pantoprazole Sodium) 40 Mg Tab, 40 MG PO DAILY for 7 Days, #7 TAB Prov:JEWELSWAPNIL RESIDENT 02/21/24 Information Source: Patient Mode of Arrival: Ambulatory Severity: Moderate Timing: Hours Duration: Since onset Prehospital treatment: None Past Medical History PAST MEDICAL HISTORY: Gallstones Surgical History (Other): Right Knee and right shoulder replacement surgery Family History Family History: Unknown Social History Smoker: Non-Smoker Alcohol: Denies ETOH Use Drugs: Denies Drug Use Lives In: Home All Other Systems: Reviewed and Negative (Comprehensive systems review obtained and negative except for what is stated in the HPI.) Physical Exam General Appearance: Moderate Distress, Normal HEENT: Normal ENT Inspection, Pharynx Normal, TMs Normal Neck: Full Range of Motion, Non-Tender, Normal, Normal Inspection Respiratory: Chest Non-Tender, Lungs Clear, No Accessory Muscle Use, No Respiratory Distress, Normal Breath Sounds Cardiovascular: No Edema, No JVD, No Murmur, No Gallop, Normal Peripheral Pulses, Regular Rate/Rhythm Breast Exam: Deferred Gastrointestinal: Epigastric (tenderness ), No Organomegaly, No Pulsatile Mass, Normal Bowel Sounds, Soft, Tenderness (epigastric region ) Genitalia: Deferred Pelvic: Deferred Rectal: Deferred Extremities: No calf tenderness, Normal capillary refill, Normal inspection, Normal range of motion, Non-tender, No pedal edema Musculoskeletal : Apperance: Normal Neurologic: Alert, 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 Was a procedure done?: No Differential Dx Considerations may include: Cholelithiasis, cholecystitis, gastritis, gastroenteritis, GERD, PUD, spoiled food, viral syndrome, among others. X-Ray, Labs, Meds, VS Vital Signs Date Time Temp Pulse Resp B/P (MAP) Pulse Ox O2 Delivery O2 Flow Rate FiO2 09/18/24 04:10 66 19 154/85 09/18/24 03:35 98.1 66 19 154/85 (108) 97 98.1 Lab Test 09/18/24 04:05 Range/Units White Blood Count 17.0 H 4.4-10.8 10^3/uL Red Blood Count 5.38 4.5-5.90 10^6/uL Hemoglobin 16.7 13.5-17.5 g/dL Hematocrit 48.5 41.0-53.0 % Mean Corpuscular Volume 90.1 80.0-100.0 fL Mean Corpuscular Hemoglobin 31.1 28.0-32.0 pg Mean Corpuscular Hemoglobin Concent 34.5 32.0-36.0 g/dL Red Cell Distribution Width 15.0 H 11.8-14.3 % Platelet Count 351 140-450 10^3/uL Mean Platelet Volume 8.6 6.9-10.8 fL Neutrophils (%) (Auto) 67.6 37.0-80.0 % Lymphocytes (%) (Auto) 25.4 10.0-50.0 % Monocytes (%) (Auto) 6.0 0.0-12.0 % Eosinophils (%) (Auto) 0.7 0.0-7.0 % Basophils (%) (Auto) 0.3 0.0-2.0 % Neutrophils # (Auto) 11.5 H 1.6-8.6 10 ^3/uL Lymphocytes # (Auto) 4.3 0.4-5.4 10 ^3/uL Monocytes # (Auto) 1.0 0-1.3 10 ^3/uL Eosinophils # (Auto) 0.1 0-0.8 10 ^3/uL Basophils # (Auto) 0.1 0-0.2 10 ^3/uL Nucleated Red Blood Cells 0.1 % Sodium Level 141 136-145 mmol/L Potassium Level 3.4 L 3.5-5.1 mmol/L Chloride Level 105 98-107 mmol/L Carbon Dioxide Level 26 20-31 mmol/L Anion Gap 10 5-15 Blood Urea Nitrogen 7 L 9-23 mg/dL Creatinine 1.10 0.700-1.30 mg/dL Glomerular Filtration Rate Calc 83 >90 mL/min BUN/Creatinine Ratio 6.4 L 10.0-20.0 Serum Glucose 143 H 74-106 mg/dL Calcium Level 9.1 8.7-10.4 mg/dL Total Bilirubin 0.4 0.2-1.0 mg/dL Aspartate Amino Transferase (AST) 23 13-40 U/L Alanine Aminotransferase (ALT) 25 7-40 U/L Alkaline Phosphatase 61 46-116 U/L Total Protein 7.6 5.7-8.2 g/dL Albumin 4.7 3.2-4.8 g/dL Lipase 28 12-53 U/L Current Medications Medications (Trade) Dose Ordered Sig/Eric Route Start Time Stop Time Status Last Admin Sodium Chloride 1,000 ml @ 1,000 mls/hr Q1H ONCE IV 09/18/24 03:45 09/18/24 04:44 DC 09/18/24 04:09 Ondansetron HCl (Zofran) 4 mg ONCE ONCE IV 09/18/24 03:45 09/18/24 03:47 DC 09/18/24 04:09 Morphine Sulfate 4 mg ONCE ONCE IV 09/18/24 03:45 09/18/24 03:47 DC 09/18/24 04:10 Pantoprazole Sodium (Protonix) 40 mg ONCE ONCE IV 09/18/24 03:45 09/18/24 03:47 DC 09/18/24 04:09 Piperacillin Sod/ Tazobactam Sod 100 ml @ 100 mls/hr ONCE ONCE IV 09/18/24 05:30 09/18/24 06:29 DC 09/18/24 06:09 Patient alert. Came in because of abdominal pain. Vitals stable. Answering questions. Possible sepsis. Establish intravenous access. Was given fluids pain Was given pain medication. Was given Zofran. Lipase within normal limits. Continues to have abdominal pain. Blood sugar elevated. HIDA scan. Explained to the patient. Continue monitoring. Possible acute cholecystitis. Time of 1ST Reevaluation: 04:20 Reevaluation 1ST: Unchanged Patient Education/Counseling: Diagnosis, Treatment Family Education/Counseling: No Family Present Additional Information Previous visits reviewed: February 21, 2024 and September 05, 2024 encounters for abdominal pain and cholelithiasis, respectively. The following tests were ordered, and results were reviewed by me: CT abdomen/pelvis w/IV contrast, Lipase, CMP, CBC Additional Information was gathered from interviewing the following independent historians: N/A I reviewed and agreed with the following test results read by other providers: CT abdomen/pelvis w/IV contrast I discussed treatment and results with medical personnel and: patient SEPSIS Sepsis Screen Physician Orders Ct Ab Pel With Iv Con Only (09/18/24 03:45) Nm Hida Scan (09/18/24 07:44) Abdomen Complete Sonogram (09/18/24 07:48) Vital Signs Date Time Temp Pulse Resp B/P (MAP) Pulse Ox O2 Delivery O2 Flow Rate FiO2 09/18/24 04:10 66 19 154/85 09/18/24 03:35 98.1 66 19 154/85 (108) 97 98.1 Laboratory Tests Test 09/18/24 04:05 White Blood Count 17.0 10^3/uL (4.4-10.8) H Medications Medications Dose Ordered Sig/Eric Route Start Time Stop Time Status Last Admin Dose Admin Morphine Sulfate 4 mg ONCE ONCE IV 09/18/24 03:45 09/18/24 03:47 DC 09/18/24 04:10 Ondansetron HCl 4 mg ONCE ONCE IV 09/18/24 03:45 09/18/24 03:47 DC 09/18/24 04:09 Pantoprazole Sodium 40 mg ONCE ONCE IV 09/18/24 03:45 09/18/24 03:47 DC 09/18/24 04:09 Piperacillin Sod/ Tazobactam Sod 100 ml @ 100 mls/hr ONCE ONCE IV 09/18/24 05:30 09/18/24 06:29 DC 09/18/24 06:09 Sodium Chloride 1,000 ml @ 1,000 mls/hr Q1H ONCE IV 09/18/24 03:45 09/18/24 04:44 DC 09/18/24 04:09 Departure 1 Departure Time of Disposition: 07:43 Impression: Primary Impression: Sepsis, unspecified organism Qualified Codes: A41.9 - Sepsis, unspecified organism Additional Impressions: Cholelithiasis Qualified Codes: K80.80 - Other cholelithiasis without obstruction Intractable abdominal pain Disposition: ADMITTED INPATIENT Admit to: Med Surg Condition: Guarded Critical Care Note Critical Care Time?: No Stability Stability form required: No Heart Score Heart Score: Heart Score Response (Comments) Value History N/A 0 EKG N/A 0 Age N/A 0 Risk Factors N/A 0 Troponin N/A 0 Total 0 I personally scribed for MAURY ALEXANDRE MD ([email or web address]) on 09/18/24 at 03:58. Electronically submitted by Santi Silva ([email or web address]). MAURY ALEXANDRE MD Sep 18, 2024 03:58 LORNA JORGENSEN MD Sep 18, 2024 07:43
[2024-09-18] MEDS: SODIUM CHLORIDE 0.9% 1,000 ML IV ONE ×3 (04:09→09:41)
[2024-09-18] MEDS: PANTOPRAZOLE 40 MG/10 ML VIAL INJ IV ONE (04:09)
[2024-09-18] MEDS: ONDANSETRON HCL 4 MG/2 ML VIAL IV ONE ×2 (04:09→09:55)
[2024-09-18] MEDS: MORPHINE SULFATE 4 MG/ML SYR/VIAL IV ONE (04:10)
[2024-09-18 05:12] LABS: Hematocrit 48.5 % (41.0-53.0); Hemoglobin 16.7 g/dL (13.5-17.5); Mean Corpuscular Hemoglobin 31.1 pg (28.0-32.0); Mean Corpuscular Volume 90.1 fL (80.0-100.0); Nucleated Red Blood Cells % 0.1 %
[2024-09-18 05:16] LABS: Alanine Aminotransferase 25 U/L (7-40); Albumin 4.7 g/dL (3.2-4.8); Alkaline Phosphatase 61 U/L (46-116); Anion Gap 10 (5-15); BUN/Creatinine Ratio 6.4 (10.0-20.0); Bilirubin, Total 0.4 mg/dL (0.2-1.0); Blood Urea Nitrogen 7 mg/dL (9-23); Calcium 9.1 mg/dL (8.7-10.4); Carbon Dioxide 26 mmol/L (20-31); Chloride 105 mmol/L (98-107); Glucose 143 mg/dL (74-106); Lipase 28 U/L (12-53); Potassium 3.4 mmol/L (3.5-5.1); Sodium 141 mmol/L (136-145); Total Protein 7.6 g/dL (5.7-8.2)
[2024-09-18] MEDS: IOHEXOL 300 MG/ML 100ML BOTTLE IJ ONE (05:36)
--- NOTE | 2024-09-18 06:00 | DVH ---
Exam: CT CT AB PEL WITH IV CON ONLY History: abdominal pain COMPARISON: None Technique: Multidetector spiral CT of the abdomen and pelvis was performed from lung bases to pubic s ymphysis. Intravenous contrast was administered during this examination. Portal venous imaging was o btained. Axial, coronal and sagittal multiplanar reformats were performed by the technologist on a [employer] workstation. Radiation Dose : 1. Abdomen/Pelvis: CTDIvol 19 mGy, DLP 998 mGy*cm. Findings: Lung Bases: No acute or significant lung base finding. Normal heart size. No pleural or pericardial effusion. Liver: Hepatomegaly. Gallbladder and Biliary Tree: Unremarkable Spleen: Unremarkable Pancreas: The pancreas is normal in appearance without focal lesions or abnormal enhancement. Adrenal Glands: Unremarkable Kidneys: No hydronephrosis. Bladder: Unremarkable Bowel: The stomach is grossly normal in appearance. Diverticulosis. Mild bowel wall thickening of the descending colon. The appendix is not visualized; however, no secondary findings of acute appendicit is identified. Ascites: Absent Lymphadenopathy: No mesenteric, retroperitoneal or periportal lymphadenopathy. Abdominal Wall and Mesentery: Small fat containing left inguinal hernia Vasculature: The visualized abdominal aorta is normal in size and caliber. Abdominal and pelvic vess els demonstrate normal enhancement. Pelvic Organs: Unremarkable Musculoskeletal: No aggressive focal bony lesions, acute fractures or dislocation. Degenerative saul es of the spine. IMPRESSION: Mild bowel wall thickening of the descending colon. This may be related to mild colitis or under dis tention of bowel loops. Otherwise, no acute findings.
[2024-09-18] MEDS: PIPERACILLIN-TAZO 4.5GM 100 ML IV ONE (06:09)
[2024-09-18] MEDS ORDERED: NITROGLYCERIN 0.4 MG SL TAB SL PRN (08:00)
[2024-09-18] MEDS ORDERED: DOCUSATE SOD 100 MG CAP PO PRN (08:00)
[2024-09-18] MEDS ORDERED: ONDANSETRON HCL 4 MG/2 ML VIAL IV PRN (08:00)
[2024-09-18] MEDS ORDERED: MORPHINE SULFATE INJ 2 MG/ml SYRG IV PRN (08:00)
[2024-09-18] MEDS ORDERED: ACETAMINOPHEN 325 MG TAB PO PRN (08:00)
[2024-09-18] MEDS ORDERED: ATOR40TA52 PO (08:04)
--- NOTE | 2024-09-18 08:11 | DVHHP2 ---
History of Present Illness Reason for Visit: Abdominal pain History of Present Illness Scott Ellington is a 49-year-old male with past medical history of hyperlipidemia who came to the hospital for abdominal pain. Patient states he has been experiencing gallbladder attacks since January 2024. He was seen at this facility in January 2024, and earlier this month for similar complaints. In July he had a similar attack, but it only lasted about 1 hour so he did not come to the hospital. Each time his pain resolved so he was discharged home. Today his pain is not improving and he has leukocytosis. When he was here September 05, 2024, an ultrasound showed cholelithiasis. Patient states he last ate about 1900 last night, he had tacos. His pain began about midnight and has not subsided or improved at all. He has had a couple episodes of vomiting and continues to be nauseated. Cardiovascular: hyperipidemia Past Surgical History: Other (right shoulder surgery), Total knee replacement (right) Smoke: No ALCOHOL: occassional Drugs: None Lives: with Family Domestic Violence: Neg Review of Systems Constitutional: No: Fever, Chills, Sweats, Weakness, Malaise, Other Eyes: No: Pain, Vision change, Conjunctivae inflammation, Eyelid inflammation, Other, Redness ENT: No: Ear pain, Ear discharge, Nose pain, Nose discharge, Nose congestion, Mouth pain, Mouth swelling, Throat pain, Throat swelling, Other Respiratory: No: Cough, Dry, Shortness of breath, SOB with excertion, Wheezing, Hemoptysis, Pleuritic Pain, Sputum, Wheezing, Other Cardiovascular: No: Chest Pain, Palpitations, Orthopnea, Paroxysmal Noc. Dyspnea, Edema, Lt Headedness, Other Gastrointestinal: Nausea, Vomiting, Abdominal Pain; No: Diarrhea, Constipation, Melena, Hematochezia, Other Genitourinary: No Dysuria, No Frequency, No Incontinence, No Hematuria, No Retention, No Other Musculoskeletal: No: other, neck pain, shoulder pain, arm pain, back pain, hand pain, leg pain, foot pain Skin: No: Rash, Lesions, Jaundice, Bruising, Other Neurological: No: Weakness, Numbness, Incoordination, Change in speech, Confusion, Seizures, Other Allergies: Coded Allergies: NO KNOWN ALLERGIES (Unverified , 02/21/24) Exam Vital Signs Vital Signs Date Time Temp Pulse Resp B/P (MAP) Pulse Ox O2 Delivery O2 Flow Rate FiO2 09/18/24 04:10 66 19 154/85 09/18/24 03:35 98.1 97 98.1 General Appearance: Alert, Oriented X3, Cooperative, moderate distress HEENT: Atraumatic, PERRLA Respiratory: Clear to auscultation, Normal air movement Cardiovascular: Regular rate, Normal S1, Normal S2, No murmurs Abdominal: Normal bowel sounds, Soft, Other (epigastric and RUQ pain, nausea/vomiting) Extremities: No clubbing, No cyanosis, No edema, Normal pulses, No tenderness/s welling Skin: No rashes, No breakdown, No significant lesion Neuro: Normal gait, Normal speech, Strength at 5/5 X4 ext, Normal tone Psych/Mental Status: Mental status NL, Mood NL Labs/Xrays Labs Test 09/18/24 04:05 Range/Units White Blood Count 17.0 H 4.4-10.8 10^3/uL Red Blood Count 5.38 4.5-5.90 10^6/uL Hemoglobin 16.7 13.5-17.5 g/dL Hematocrit 48.5 41.0-53.0 % Mean Corpuscular Volume 90.1 80.0-100.0 fL Mean Corpuscular Hemoglobin 31.1 28.0-32.0 pg Mean Corpuscular Hemoglobin Concent 34.5 32.0-36.0 g/dL Red Cell Distribution Width 15.0 H 11.8-14.3 % Platelet Count 351 140-450 10^3/uL Mean Platelet Volume 8.6 6.9-10.8 fL Neutrophils (%) (Auto) 67.6 37.0-80.0 % Lymphocytes (%) (Auto) 25.4 10.0-50.0 % Monocytes (%) (Auto) 6.0 0.0-12.0 % Eosinophils (%) (Auto) 0.7 0.0-7.0 % Basophils (%) (Auto) 0.3 0.0-2.0 % Neutrophils # (Auto) 11.5 H 1.6-8.6 10 ^3/uL Lymphocytes # (Auto) 4.3 0.4-5.4 10 ^3/uL Monocytes # (Auto) 1.0 0-1.3 10 ^3/uL Eosinophils # (Auto) 0.1 0-0.8 10 ^3/uL Basophils # (Auto) 0.1 0-0.2 10 ^3/uL Nucleated Red Blood Cells 0.1 % Sodium Level 141 136-145 mmol/L Potassium Level 3.4 L 3.5-5.1 mmol/L Chloride Level 105 98-107 mmol/L Carbon Dioxide Level 26 20-31 mmol/L Anion Gap 10 5-15 Blood Urea Nitrogen 7 L 9-23 mg/dL Creatinine 1.10 0.700-1.30 mg/dL Glomerular Filtration Rate Calc 83 >90 mL/min BUN/Creatinine Ratio 6.4 L 10.0-20.0 Serum Glucose 143 H 74-106 mg/dL Calcium Level 9.1 8.7-10.4 mg/dL Total Bilirubin 0.4 0.2-1.0 mg/dL Aspartate Amino Transferase (AST) 23 13-40 U/L Alanine Aminotransferase (ALT) 25 7-40 U/L Alkaline Phosphatase 61 46-116 U/L Total Protein 7.6 5.7-8.2 g/dL Albumin 4.7 3.2-4.8 g/dL Lipase 28 12-53 U/L Exam: CT CT AB PEL WITH IV CON ONLY Findings: Lung Bases: No acute or significant lung base finding. Normal heart size. No pleural or pericardial effusion. Liver: Hepatomegaly. Gallbladder and Biliary Tree: Unremarkable Spleen: Unremarkable Pancreas: The pancreas is normal in appearance without focal lesions or abnormal enhancement. Adrenal Glands: Unremarkable Kidneys: No hydronephrosis. Bladder: Unremarkable Bowel: The stomach is grossly normal in appearance. Diverticulosis. Mild bowel wall thickening of the descending colon. The appendix is not visualized; however, no secondary findings of acute appendicitis identified. Ascites: Absent Lymphadenopathy: No mesenteric, retroperitoneal or periportal lymphadenopathy. Abdominal Wall and Mesentery: Small fat containing left inguinal hernia Vasculature: The visualized abdominal aorta is normal in size and caliber. Abdominal and pelvic vessels demonstrate normal enhancement. Pelvic Organs: Unremarkable Musculoskeletal: No aggressive focal bony lesions, acute fractures or dislocation. Degenerative changes of the spine. IMPRESSION: Mild bowel wall thickening of the descending colon. This may be related to mild colitis or under distention of bowel loops. Otherwise, no acute findings. SEPSIS Sepsis Screen Date sepsis recognized/suspect: Sep 18, 2024 Time Sepsis recognized/suspect: 0335 Recent Procedure: No On Antibiotic Therapy: No Respiratory Rate >20: No Heart Rate >90: No Temp<36 C (96.8 F) or >38.3 C: No SBP <90 or MAP <65 mmHG: No New Acute Mental Status Change: No Is the patient on CPAP, BIPAP,: No Physician Orders Ct Ab Pel With Iv Con Only (09/18/24 03:45) Nm Hida Scan (09/18/24 07:44) Abdomen Complete Sonogram (09/18/24 07:48) Hydromorphone Injection (Dilaudid Inject (09/18/24 08:00) Ondansetron Hcl (Zofran) (09/18/24 08:00) Metronidazole 500mg/100ml (Flagyl 500mg/ (09/18/24 08:00) Sodium Chloride 0.9% (09/18/24 08:00) Sodium Chloride 0.9% (09/18/24 08:00) Admit (09/18/24 07:52) Code Status (09/18/24 07:52) 0.9% Ns 1000 Ml (09/18/24 08:00) Hydrocodone-Acet 5/325mg Tab ([place] 5/32 (09/18/24 08:00) Ondansetron Hcl (Zofran) (09/18/24 08:00) Docusate Sodium Capsule (Colace Capsule) (09/18/24 08:00) Complete Blood Count (09/19/24 04:00) Comprehensive Metabolic Panel (09/19/24 04:00) Npo (Nothing By Mouth) Diet (09/18/24 Breakfast) Condition: Serious (09/18/24 07:52) Acetaminophen Tablet (Tylenol Tablet) (09/18/24 08:00) Morphine Sulfate Injection (09/18/24 08:00) Nitroglycerin Sublingual (Ntrostat Subli (09/18/24 08:00) Morphine Sulfate Injection (09/18/24 08:00) Stat Ekg For Chest Pain (09/18/24 07:52) Emergency Dysrhythmia Protocol (09/18/24 07:52) Oxygen By Nasal Cannula (09/18/24 07:52) * Surgical Consult (09/18/24 ) Vital Signs Date Time Temp Pulse Resp B/P (MAP) Pulse Ox O2 Delivery O2 Flow Rate FiO2 09/18/24 04:10 66 19 154/85 09/18/24 03:35 98.1 66 19 154/85 (108) 97 98.1 Laboratory Tests Test 09/18/24 04:05 White Blood Count 17.0 10^3/uL (4.4-10.8) H Medications Medications Dose Ordered Sig/Eric Route Start Time Stop Time Status Last Admin Dose Admin Morphine Sulfate 4 mg ONCE ONCE IV 09/18/24 03:45 09/18/24 03:47 DC 09/18/24 04:10 4 MG Ondansetron HCl 4 mg ONCE ONCE IV 09/18/24 03:45 09/18/24 03:47 DC 09/18/24 04:09 4 MG Pantoprazole Sodium 40 mg ONCE ONCE IV 09/18/24 03:45 09/18/24 03:47 DC 09/18/24 04:09 40 MG Piperacillin Sod/ Tazobactam Sod 100 ml @ 100 mls/hr ONCE ONCE IV 09/18/24 05:30 09/18/24 06:29 DC 09/18/24 06:09 100 MLS/HR Sodium Chloride 1,000 ml @ 1,000 mls/hr Q1H ONCE IV 09/18/24 03:45 09/18/24 04:44 DC 09/18/24 04:09 1,000 MLS/HR Assessment/Plan Assessment/Plan Assessment: Intractable abdominal pain, Possible cholecystitis, Cholelithiasis, Leukocytosis, Hyperlipidemia, Plan: Admit to Med-Surg, Surgical consult, NPO, Pain management, Antiemetics, IV hydration, IV antibiotics, Chest X-ray, PT/PTT, Daily IV Protonix while NPO, Home medications reconciled, Plan discussed with: Patient, Spouse My Orders Orders - JAY DENNISON Procedure Category Date Status Time Abdomen Complete US 09/18/24 Logged Sonogram 07:48 Admit ADMIT 09/18/24 Verified 07:52 Code Status CODE 09/18/24 Verified 07:52 0.9% Ns 1000 Ml PHA 09/18/24 Verified 08:00 Hydrocodone-Acet PHA 09/18/24 Verified 5/325mg Tab ([place] 08:00 Ondansetron Hcl PHA 09/18/24 Verified (Zofran) 08:00 Docusate Sodium PHA 09/18/24 Verified Capsule (Colace 08:00 Complete Blood Count LAB 09/19/24 Verified 04:00 Comprehensive LAB 09/19/24 Verified Metabolic Panel 04:00 Npo (Nothing By DIET 09/18/24 Verified Mouth) Diet Breakfast Condition: Serious GURPREET 09/18/24 Verified 07:52 Acetaminophen Tablet PHA 09/18/24 Verified (Tylenol Tablet) 08:00 Morphine Sulfate PHA 09/18/24 Verified Injection 08:00 Nitroglycerin PHA 09/18/24 Verified Sublingual (Ntrostat 08:00 Morphine Sulfate PHA 09/18/24 Verified Injection 08:00 Stat Ekg For Chest GURPREET 09/18/24 Verified Pain 07:52 Emergency Dysrhythmia GURPREET 09/18/24 Verified Protocol 07:52 Oxygen By Nasal RT 09/18/24 Verified Cannula 07:52 * Surgical Consult CONS 09/18/24 Verified Date of Service: Sep 18, 2024 Billing Provider: JAY DENNISON Common Visit Codes: [id number] INP/OBS CARE (MOD) JAY DENNISON Sep 18, 2024 08:11
--- NOTE | 2024-09-18 08:28 | DVH ---
EXAM: XY CHEST PORTABLE Indication: pain Technique: Single frontal view of the chest was obtained Comparison: XY CHEST XRAY 1 VIEW on DOS: 02/21/24 FINDINGS: Lines and Tubes: None Lungs: No focal consolidation. Pleura: No effusion. No pneumothorax. Cardiomediastinal contours: Unremarkable Bones: No acute osseous abnormality. IMPRESSION: No acute cardiopulmonary disease.
[2024-09-18 08:47] VITALS: BP 154/85; PULSE 65; RESP 20; TEMP 98.8; O2SAT 97
--- NOTE | 2024-09-18 08:47 | DVH ---
CLINICAL INFORMATION: Epigastric and right upper quadrant abdominal pain. Possible cholecystitis. TECHNIQUE: Grayscale sonographic imaging of the abdomen was performed, assisted by color Doppler darren hnique. COMPARISON: Prior ultrasound dated 09/05/2024. Correlation also made to same day CT. FINDINGS: The gallbladder wall measures 10.1 mm in thickness, abnormally thickened. There are mobi le gallstones visualized. Positive reported sonographic Tamez's sign. The common bile duct measures 6.7 mm in diameter, near the upper limits of normal. The liver is borderline mildly enlarged, measuring up to 16.7 cm in craniocaudal dimension. Increase d echogenicity of the liver suggesting fatty infiltration. The pancreas is obscured by bowel gas. The right kidney measures 11.3 cm. There is no hydronephrosis. Normal cortical echogenicity and co rtical thickness. The left kidney measures 12.1 cm. There is no hydronephrosis. Normal cortical echogenicity and cor tical thickness. The spleen measures 11.7 cm. Unremarkable echogenicity. IVC is not well-visualized. Aorta is not well-visualized. IMPRESSION: 1. Cholelithiasis with marked gallbladder wall thickening and positive reported sonographic tamez's sign. Acute cholecystitis can not be excluded in the appropriate clinical setting. Correlate with cl inical findings. 2. Hepatic steatosis and borderline hepatomegaly. 3. Limited examination due to bowel gas. Pancreas, IVC, and aorta are poorly visualized.
[2024-09-18] MEDS: HYDROmorphone HCL 2 MG/ML VL/or syr IV ONE (08:57)
[2024-09-18 09:07] VITALS: BP 154/85; PULSE 65; RESP 20; TEMP 98.8; O2SAT 97
[2024-09-18 11:34] LABS: INR 0.99 (0.9-1.15); Partial Thromboplastin Time 23.8 SEC (24.5-34.5); Prothrombin Time 10.5 sec (9.3-11.8)
[2024-09-18] MEDS: PANTOPRAZOLE 40 MG/10 ML VIAL INJ IV SCH (11:36)
[2024-09-18] MEDS: MORPHINE SULFATE INJ 2 MG/ml SYRG IV PRN (11:56)
--- NOTE | 2024-09-18 12:51 | DVHINCON2 ---
Date of service: Sep 18, 2024 History of Present Illness 49-year-old male complaining of right upper quadrant abdominal pain that began couple of days ago. Patient was seen in the emergency room earlier this month for similar pain. Past Medical History Gallstones Past Surgical History Right knee surgery Family History: Hypertension G8 MOTHER Family History Noncontributory Social History Denies alcohol, tobacco, IV drug use Allergies: Coded Allergies: NO KNOWN ALLERGIES (Unverified , 02/21/24) Home Meds Active Scripts Pantoprazole Sodium Sesquihydr (Pantoprazole Sodium) 40 Mg Tab, 40 MG PO DAILY for 7 Days, #7 TAB Prov:SWAPNIL HOLLOWAY RESIDENT 02/21/24 Reported Medications Atorvastatin Calcium (ATORVASTATIN CALCIUM) 40 Mg Tab, 1 TAB PO HS 09/18/24 Current Medications Current Medications Medications (Trade) Dose Ordered Sig/Eric Route PRN Reason Start Time Stop Time Status Last Admin Sodium Chloride 1,000 ml @ 100 mls/hr Q10H IV 09/18/24 14:39 Acetaminophen/ Hydrocodone Bitart ([place] 5/325MG Tab) 1 tab Q4HP PRN PO MODERATE PAIN (4-6 PAIN SCALE) 09/18/24 08:00 Ondansetron HCl (Zofran) 4 mg Q4HP PRN IV NAUSEA / VOMITING 09/18/24 08:00 Docusate Sodium (Colace Capsule) 100 mg BIDPRN PRN PO FOR CONSTIPATION 09/18/24 08:00 Acetaminophen (Tylenol Tablet) 650 mg Q6HP PRN PO PAIN SCALE 1-3 OR TEMP>100.4 09/18/24 08:00 Morphine Sulfate 4 mg Q4HPRN PRN IV SEVERE PAIN (7-10 PAIN SCALE) 09/18/24 08:00 09/18/24 11:56 Nitroglycerin (Ntrostat Sublingual) 0.4 mg Q5MINP PRN SL FOR CHEST PAIN 09/18/24 08:00 Morphine Sulfate 2 mg Q30M PRN IV FOR CHEST PAIN 09/18/24 08:00 Atorvastatin Calcium (Lipitor) 40 mg HS PO 09/18/24 22:00 Cancel Pantoprazole Sodium (Protonix) 40 mg DAILY IV 09/18/24 10:00 09/18/24 11:36 Atorvastatin Calcium (Lipitor) 40 mg HS PO 09/18/24 22:00 Piperacillin Sod/ Tazobactam Sod 100 ml @ 25 mls/hr Q8HR IV 09/18/24 14:00 UNV Vital Signs Vital Signs Date Time Temp Pulse Resp B/P (MAP) Pulse Ox O2 Delivery O2 Flow Rate FiO2 09/18/24 11:56 76 20 143/68 09/18/24 09:07 Room Air* 0 21 09/18/24 09:07 98.8 97 98.8 Physical Exam GEN: Age-appropriate male in mild distress from his abdominal pain. Alert. HEENT: Normocephalic atraumatic. Moist mucous membranes. Anicteric sclerae. CV: RRR Respiratory: CTAB ABD: Localized right upper quadrant tenderness to palpation with localized guarding. Nondistended. Abdominal ultrasound: Cholelithiasis with marked gallbladder wall thickening positive sonographic Tamez's sign. CBD is 6.7 mm Labs/Diagnostic Data Labs Test 09/18/24 10:56 09/18/24 04:05 Range/Units Prothrombin Time 10.5 9.3-11.8 sec Prothrombin Time INR 0.99 0.9-1.15 Activated Partial Thromboplast Time 23.8 L 24.5-34.5 SEC White Blood Count 17.0 H 4.4-10.8 10^3/uL Red Blood Count 5.38 4.5-5.90 10^6/uL Hemoglobin 16.7 13.5-17.5 g/dL Hematocrit 48.5 41.0-53.0 % Mean Corpuscular Volume 90.1 80.0-100.0 fL Mean Corpuscular Hemoglobin 31.1 28.0-32.0 pg Mean Corpuscular Hemoglobin Concent 34.5 32.0-36.0 g/dL Red Cell Distribution Width 15.0 H 11.8-14.3 % Platelet Count 351 140-450 10^3/uL Mean Platelet Volume 8.6 6.9-10.8 fL Neutrophils (%) (Auto) 67.6 37.0-80.0 % Lymphocytes (%) (Auto) 25.4 10.0-50.0 % Monocytes (%) (Auto) 6.0 0.0-12.0 % Eosinophils (%) (Auto) 0.7 0.0-7.0 % Basophils (%) (Auto) 0.3 0.0-2.0 % Neutrophils # (Auto) 11.5 H 1.6-8.6 10 ^3/uL Lymphocytes # (Auto) 4.3 0.4-5.4 10 ^3/uL Monocytes # (Auto) 1.0 0-1.3 10 ^3/uL Eosinophils # (Auto) 0.1 0-0.8 10 ^3/uL Basophils # (Auto) 0.1 0-0.2 10 ^3/uL Nucleated Red Blood Cells 0.1 % Sodium Level 141 136-145 mmol/L Potassium Level 3.4 L 3.5-5.1 mmol/L Chloride Level 105 98-107 mmol/L Carbon Dioxide Level 26 20-31 mmol/L Anion Gap 10 5-15 Blood Urea Nitrogen 7 L 9-23 mg/dL Creatinine 1.10 0.700-1.30 mg/dL Glomerular Filtration Rate Calc 83 >90 mL/min BUN/Creatinine Ratio 6.4 L 10.0-20.0 Serum Glucose 143 H 74-106 mg/dL Calcium Level 9.1 8.7-10.4 mg/dL Total Bilirubin 0.4 0.2-1.0 mg/dL Aspartate Amino Transferase (AST) 23 13-40 U/L Alanine Aminotransferase (ALT) 25 7-40 U/L Alkaline Phosphatase 61 46-116 U/L Total Protein 7.6 5.7-8.2 g/dL Albumin 4.7 3.2-4.8 g/dL Lipase 28 12-53 U/L Assessment 1. Acute cholecystitis Plan/Recommendation 1. Laparoscopic cholecystectomy possible open surgery Informed consent: The surgery and its risks including but not limited to infection, bleeding requiring possible blood transfusion with the risk of hepatitis or HIV infection, possible open surgery, possible cystic duct leak or retained common bile duct stone requiring further intervention such as an ERCP, possible perioperative [place] or stroke were explained to the patient. All qu estions were answered to his satisfaction. He expressed verbal understanding and wished to proceed with the surgery. Plan discussed with: Patient TREY SAAB MD Sep 18, 2024 12:51
[2024-09-18 13:19] VITALS: BP 148/79; PULSE 80; RESP 18; TEMP 99.8; O2SAT 94
[2024-09-18] MEDS: PIPERACILLIN-TAZOB 3.375GM 100 ML IV SCH (14:00)
[2024-09-18] MEDS ORDERED: SODIUM CHLORIDE 0.9% 1,000 ML IV SCH (14:39)
[2024-09-18] MEDS ORDERED: HYDROmorphone HCL 2 MG/ML VL/or syr ONE ×2 (14:59→16:51)
[2024-09-18] MEDS: ceFAZolin 1GM/50ML 50 ML IV ONE (15:30)
[2024-09-18] MEDS ORDERED: MIDAZOLAM HCL 2MG/2ML 2ml VIAL (1mg/ml) ONE (15:41)
[2024-09-18] MEDS ORDERED: METOCLOPRAMIDE HCL 5MG/ml INJ 2ml VIAL ONE (15:42)
[2024-09-18] MEDS ORDERED: PROPOFOL 10 MG/ML 20 ML IV ONE ×2 (15:42→16:41)
[2024-09-18] MEDS ORDERED: ONDANSETRON HCL 4 MG/2 ML VIAL ONE (15:42)
[2024-09-18] MEDS ORDERED: hydrALAZINE HCL 20 MG/ML VL IV PRN (15:45)
[2024-09-18] MEDS ORDERED: HYDROmorphone HCL 2 MG/ML VL/or syr IV PRN (15:45)
[2024-09-18] MEDS ORDERED: SUGAMMADEX 200mg/2ml Vial (100MG/ML) IV ONE (16:16)
[2024-09-18] MEDS ORDERED: ROCURONIUM 10MG/ML 10ML VIAL IV ONE (16:41)
[2024-09-18] MEDS: LIDOCAINE 1%-Mpf/Epinephrine 1:200,000 30ml VIAL ONE (16:45)
[2024-09-18 16:57] VITALS: PULSE 85; RESP 16; O2SAT 94
--- NOTE | 2024-09-18 17:02 | DVHOP2 ---
Operative Report - 2 Report Details Date: 09/18/24 Preop Diagnosis: 1. Acute cholecystitis Postop Diagnosis: 1. Same Surgeon: Trey Torre MD Assembler Show Motor: None Anesthesiologist: Yogi Kim CRNA Anesthesia: General, Local Drains: Fifteen Polish Mehran drain in right upper quadrant Consent: The surgery and its risks including but not limited to infection, bleeding requiring possible blood transfusion with the risk of hepatitis or HIV infection, possible open surgery, possible cystic duct leak or retained common bile duct stone requiring further intervention such as an ERCP, possible perioperative [place] or stroke were explained to the patient. All questions were answered to his satisfaction. He expressed verbal understanding and wished to proceed with the surgery. Complications: None Estimated Blood Loss: 75 mL Fluids: 800 mL crystalloids Name of Procedure Performed Laparoscopic cholecystectomy Procedure Details Procedure Details: After induction of general anesthesia, patient's abdomen was prepped and draped in standard surgical fashion. A small infraumbilical incision was made and this incision was taken through the abdominal wall down to the fascia which was opened sharply. Peritoneum was then bluntly divided gaining access to the intra-abdominal cavity. Interrupted 0 Vicryl sutures were placed through the fascial incision and using an open technique, Edy trocar was introduced and secured using the Vicryl sutures. Abdomen was then insufflated to 15 mmHg and camera was inserted. Visual examination of the intestine under the fascial incision appeared normal without injury. Under direct visualization a 5 mm bladeless trocar was placed in the epigastric region and two additional 5 mm bladeless trocars were placed in the right upper quadrant all under direct visualization. Examination of the right upper quadrant revealed a very distended and inflamed gallbladder. An endo needle was used to decompress the gallbladder with bilious fluid aspirated from the gallbladder lumen. Once the gallbladder was decompressed it was grasped and retracted in a cephalad direction. There was both acute and chronic inflammatory adhesion of the omentum to the gallbladder which had to be peeled off eventually identifying the gallbladder cystic duct junction. Infundibulum was retracted laterally and careful blunt dissection was performed to identify the cystic duct which appeared normal in size. This was clipped and divided using Endoclips without complication. The cystic artery was located just above the cystic duct and this was clipped and divided using Endoclips without complication. Gallbladder was then removed from the liver bed using electrocautery. There was no bile or stone spillage during the maneuver. Gallbladder was then removed from the abdominal cavity using an endo pouch bag and sent off the surgical field. Abdomen was then re-insufflated. Hemostasis in the liver bed was achieved using electrocautery. Right upper quadrant was then well irrigated. A 15 Polish Mehran drain was placed in the right upper quadrant and brought out through the 5 mm trocar site laterally and secured to the skin using 3-0 nylon sutures. The rest of the trocars were then removed under direct visualization as the abdomen was deflated. Additional interrupted 0 Vicryl sutures were placed through the infraumbilical fascial incision and all sutures were tied down closing off the infraumbilical fascia. Surgical sites were irrigated injected with 20 mL of 1% lidocaine with epinephrine. Skin incisions were closed using vinnie. Surgical sites were cleaned and dried and dressings were applied. Sponge, needle, instrument count at the end of the case were reported to be correct by the nursing staff. The patient tolerated the procedure well. At the time of dictation he is being awakened from general anesthesia. Specimen: Specimen: Gallbladder Condition Stable Disposition Still a Patient TREY TORRE MD Sep 18, 2024 17:01
[2024-09-18] MEDS: SODIUM CHLORIDE 0.9% 1,000 ML IV SCH (19:20)
[2024-09-18 20:17] LABS: Urine Protein, UAD Negative (Negative)
[2024-09-18 21:00] VITALS: BP 117/84; PULSE 86; RESP 17; TEMP 98.7; O2SAT 95
[2024-09-18] MEDS: ATORVASTATIN 20 MG TAB PO SCH (21:36)
[2024-09-18] MEDS ORDERED: ATORVASTATIN 20 MG TAB PO SCH (22:00)
[2024-09-19] VITALS (7 sets, daily range): BP systolic 118–140; BP diastolic 71–93; PULSE 73–90; RESP 17–20; TEMP 97.7–100.2; O2SAT 92–98
[2024-09-19 06:25] LABS: Hematocrit 40.9 % (41.0-53.0); Hemoglobin 14.1 g/dL (13.5-17.5); Mean Corpuscular Hemoglobin 30.8 pg (28.0-32.0); Mean Corpuscular Volume 89.5 fL (80.0-100.0); Nucleated Red Blood Cells % 0.0 %
[2024-09-19 06:47] LABS: Albumin 3.9 g/dL (3.2-4.8); Alkaline Phosphatase 50 U/L (46-116); Anion Gap 8 (5-15); BUN/Creatinine Ratio 7.1 (10.0-20.0); Bilirubin, Total 0.8 mg/dL (0.2-1.0); Calcium 8.9 mg/dL (8.7-10.4); Carbon Dioxide 29 mmol/L (20-31); Chloride 103 mmol/L (98-107); Potassium 3.9 mmol/L (3.5-5.1); Sodium 140 mmol/L (136-145); Total Protein 6.3 g/dL (5.7-8.2)
[2024-09-19 06:51] LABS: Alanine Aminotransferase 44 U/L (7-40); Blood Urea Nitrogen 8 mg/dL (9-23); Glucose 116 mg/dL (74-106)
--- NOTE | 2024-09-19 09:11 | DVHPN2 ---
Progress Note - Dictate Date Seen: Sep 19, 2024 Medical Necessity Reason Pt with a Central, PICC or Fol: No Subjective E: no major events o/n. feels better. massiel po. vital signs Vital Sign Date Time Temp Pulse Resp B/P (MAP) Pulse Ox O2 Delivery O2 Flow Rate FiO2 09/19/24 08:42 97.9 78 17 118/76 (90) 98 97.9 09/18/24 20:00 Room Air* 0 21 Total Intake and Output 09/18/24 09/18/24 09/19/24 15:00 23:00 07:00 Intake Total 50 ml 818 ml Output Total 820 ml Balance 50 ml -2 ml medications Current Medications Medications Dose Ordered Sig/Eric Route Start Time Stop Time Status Last Admin Dose Admin Acetaminophen/ Hydrocodone Bitart 1 tab Q4HP PRN PO 09/18/24 08:00 Ondansetron HCl 4 mg Q4HP PRN IV 09/18/24 08:00 Docusate Sodium 100 mg BIDPRN PRN PO 09/18/24 08:00 Acetaminophen 650 mg Q6HP PRN PO 09/18/24 08:00 Morphine Sulfate 4 mg Q4HPRN PRN IV 09/18/24 08:00 09/18/24 11:56 4 MG Nitroglycerin 0.4 mg Q5MINP PRN SL 09/18/24 08:00 Morphine Sulfate 2 mg Q30M PRN IV 09/18/24 08:00 Atorvastatin Calcium 40 mg HS PO 09/18/24 22:00 Cancel Pantoprazole Sodium 40 mg DAILY IV 09/18/24 10:00 09/18/24 11:36 40 MG Atorvastatin Calcium 40 mg HS PO 09/18/24 22:00 09/18/24 21:36 40 MG Piperacillin Sod/ Tazobactam Sod 100 ml @ 25 mls/hr Q8HR IV 09/18/24 14:00 09/19/24 05:53 25 MLS/HR Sodium Chloride 1,000 ml @ 75 mls/hr [id number] IV 09/18/24 17:00 objective GEN: NAD ABD: surgical dressings clean and dry. CARMEN with min serosang drainage. exact output not recorded. laboratory and microbiology Laboratory Tests 09/19/24 05:22 Test 09/19/24 05:22 Range/Units Serum Glucose 116 H 74-106 mg/dL Assessment/Plan A: 1. s/p lap cholecystectomy POD #1 P: 1. cont iv abx 2. poss DC tomorrow if WBC trends down. 3. remove bandages tomorrow. ok to shower and get incisions wet tomorrow (including drain). 4. f/u in clinic next week. call [phone] for appt. Plan discussed with: Patient TREY SAAB MD Sep 19, 2024 09:10
--- NOTE | 2024-09-19 16:37 | DVHPN2 ---
Subjective Seen in bed and doing well, ambulating Reviewed: H&P, Labs Changes from previous H/P or p: No Changes Eyes: No Pain, No Vision change, No Conjunctivae inflammation, No Eyelid inflammation, No Other, No Redness ENT: No Ear pain, No Ear discharge, No Nose pain, No Nose discharge, No Nose congestion, No Mouth pain, No Mouth swelling, No Throat pain, No Throat swelling, No Other Cardiovascular: No Chest Pain, No Palpitations, No Orthopnea, No Paroxysmal Noc. Dyspnea, No Edema, No Lt Headedness, No Other Respiratory: No Cough, No Dry, No Shortness of breath, No SOB with excertion, No Wheezing, No Hemoptysis, No Pleuritic Pain, No Sputum, No Other Gastrointestinal: Nausea, Vomiting, Abdominal Pain; No Diarrhea, No Constipation, No Melena, No Hematochezia, No Other Genitourinary: No Dysuria, No Frequency, No Incontinence, No Hematuria, No Retention, No Other Musculoskeletal: No other, No neck pain, No shoulder pain, No arm pain, No back pain, No hand pain, No leg pain, No foot pain Skin: No Rash, No Lesions, No Jaundice, No Bruising, No Other Objective Vitals Vital Signs Date Time Temp Pulse Resp B/P (MAP) Pulse Ox O2 Delivery O2 Flow Rate FiO2 09/19/24 13:00 97.7 76 17 125/77 (93) 96 97.7 09/19/24 08:10 Room Air* 0 21 Intake/Output Intake and Output 09/19/24 07:00 Intake Total 868 ml Output Total 820 ml Balance 48 ml Intake Oral 718 ml IV Total 150 ml Output Urine Total 820 ml General Appearance: Alert, Oriented X3 HEENT: Atraumatic Lungs: Clear to auscultation Cardiovascular: Regular rate, Normal S1, Normal S2 Abdomen: Normal bowel sounds Medications Current Medications Medications Dose Ordered Sig/Eric Route Start Time Stop Time Status Last Admin Dose Admin Acetaminophen/ Hydrocodone Bitart 1 tab Q4HP PRN PO 09/18/24 08:00 Ondansetron HCl 4 mg Q4HP PRN IV 09/18/24 08:00 Docusate Sodium 100 mg BIDPRN PRN PO 09/18/24 08:00 Acetaminophen 650 mg Q6HP PRN PO 09/18/24 08:00 Morphine Sulfate 4 mg Q4HPRN PRN IV 09/18/24 08:00 09/18/24 11:56 4 MG Nitroglycerin 0.4 mg Q5MINP PRN SL 09/18/24 08:00 Morphine Sulfate 2 mg Q30M PRN IV 09/18/24 08:00 Atorvastatin Calcium 40 mg HS PO 09/18/24 22:00 Cancel Pantoprazole Sodium 40 mg DAILY IV 09/18/24 10:00 09/19/24 09:28 40 MG Atorvastatin Calcium 40 mg HS PO 09/18/24 22:00 09/18/24 21:36 40 MG Piperacillin Sod/ Tazobactam Sod 100 ml @ 25 mls/hr Q8HR IV 09/18/24 14:00 09/19/24 13:42 25 MLS/HR Sodium Chloride 1,000 ml @ 75 mls/hr [id number] IV 09/18/24 17:00 Laboratory Results Laboratory Tests 09/19/24 05:22 Chemistry Test 09/19/24 05:22 Albumin 3.9 g/dL (3.2-4.8) Calcium Level 8.9 mg/dL (8.7-10.4) Total Protein 6.3 g/dL (5.7-8.2) LFT Test 09/19/24 05:22 Alanine Aminotransferase (ALT) 44 U/L (7-40) H Alkaline Phosphatase 50 U/L (46-116) Aspartate Amino Transferase (AST) 35 U/L (13-40) Total Bilirubin 0.8 mg/dL (0.2-1.0) Urinalysis Test 09/18/24 03:47 Urine Color Light-yellow (Yellow) Urine Clarity Clear (Clear) Urine pH 5.5 (5.0-9.0) Urine Specific [place] 1.049 (1.001-1.035) Urine Protein Negative (Negative) Urine Ketones Trace (Negative) Urine Blood Negative /uL (Negative) Urine Nitrite Negative (Negative) Urine Bilirubin Negative (Negative) Urine Urobilinogen Normal mg/dL (Negative) Urine Leukocyte Esterase Negative /uL (Negative) Urine RBC 1 /hpf (0 - 3) Urine Microscopic WBC 1 /HPF (0-3) Urine Squamous Epithelial Cells Few /hpf (<5) Urine Bacteria None seen /hpf (None Seen) Urine Hyaline Casts Few /lpf (0 - 2) Urine Mucus Few (None Seen) Urine Glucose Normal mg/dL (Normal) Assessment/Plan Assessment/Plan Intractable abdominal pain, Possible cholecystitis, Cholelithiasis, Leukocytosis, Hyperlipidemia, s/p lap ba Advance diet as tolerated Plan discussed with: Patient My Orders Orders - CEDRICK FUENTES MD Procedure Category Date Status Time Regular Diet DIET 09/19/24 Transmitted Lunch Date of Service: Sep 19, 2024 Billing Provider: CEDRICK FUENTES MD Common Visit Codes: [id number] INP/OBS CARE(HIGH) CEDRICK FUENTES MD Sep 19, 2024 16:37
[2024-09-19] MEDS: HYDROcodone-ACET 5/325MG TAB PO PRN (18:29)
[2024-09-20 05:00] VITALS: BP 121/81; PULSE 70; RESP 20; TEMP 98.8; O2SAT 93
[2024-09-20 05:34] LABS: Hematocrit 40.4 % (41.0-53.0); Hemoglobin 14.1 g/dL (13.5-17.5); Mean Corpuscular Hemoglobin 31.2 pg (28.0-32.0); Mean Corpuscular Volume 89.5 fL (80.0-100.0); Nucleated Red Blood Cells % 0.1 %
[2024-09-20 05:51] LABS: Alanine Aminotransferase 32 U/L (7-40); Albumin 3.9 g/dL (3.2-4.8); Alkaline Phosphatase 48 U/L (46-116); Anion Gap 8 (5-15); BUN/Creatinine Ratio 9.0 (10.0-20.0); Bilirubin, Total 0.6 mg/dL (0.2-1.0); Blood Urea Nitrogen 10 mg/dL (9-23); Carbon Dioxide 27 mmol/L (20-31); Chloride 105 mmol/L (98-107); Sodium 140 mmol/L (136-145); Total Protein 6.4 g/dL (5.7-8.2)
[2024-09-20 05:55] LABS: Calcium 8.5 mg/dL (8.7-10.4); Glucose 107 mg/dL (74-106); Potassium 3.4 mmol/L (3.5-5.1)
[2024-09-20] MEDS: ONDANSETRON HCL 4 MG/2 ML VIAL IV ONE (07:44)
[2024-09-20] MEDS: METOCLOPRAMIDE HCL 5MG/ml INJ 2ml VIAL IV ONE (07:44)
[2024-09-20] MEDS: ceFAZolin 2 GM/D5W50ml 50 ML IV ONE (07:45)
[2024-09-20 08:00] VITALS: PULSE 79; RESP 16; O2SAT 93
[2024-09-20 08:44] VITALS: BP 93/105; PULSE 79; RESP 16; TEMP 98.3; O2SAT 93
[2024-09-20] MEDS ORDERED: AUG875T PO (11:34)
[2024-09-20] MEDS ORDERED: HYDR-4902 PO (11:35)
[2024-09-20 12:24] VITALS: BP 122/72; PULSE 81; RESP 17; TEMP 97.8; O2SAT 94
[2024-09-20 12:33] VITALS: BP 122/72; PULSE 81; RESP 17; TEMP 97.8; O2SAT 94
--- NOTE | 2024-09-20 12:38 | DVHDS2 ---
Discharge Summary Date of Admission Sep 18, 2024 at 07:52 Date of Discharge: Sep 20, 2024 Labs/Diagnostic Data: Laboratory Results Test 09/20/24 04:25 09/18/24 10:56 09/18/24 04:05 09/18/24 03:47 White Blood Count 10.4 10^3/uL (4.4-10.8) Red Blood Count 4.51 10^6/uL (4.5-5.90) Hemoglobin 14.1 g/dL (13.5-17.5) Hematocrit 40.4 % (41.0-53.0) Mean Corpuscular Volume 89.5 fL (80.0-100.0) Mean Corpuscular Hemoglobin 31.2 pg (28.0-32.0) Mean Corpuscular Hemoglobin Concent 34.9 g/dL (32.0-36.0) Red Cell Distribution Width 15.0 % (11.8-14.3) Platelet Count 243 10^3/uL (140-450) Mean Platelet Volume 7.9 fL (6.9-10.8) Neutrophils (%) (Auto) 78.3 % (37.0-80.0) Lymphocytes (%) (Auto) 12.9 % (10.0-50.0) Monocytes (%) (Auto) 6.9 % (0.0-12.0) Eosinophils (%) (Auto) 1.7 % (0.0-7.0) Basophils (%) (Auto) 0.2 % (0.0-2.0) Neutrophils # (Auto) 8.1 10 ^3/uL (1.6-8.6) Lymphocytes # (Auto) 1.3 10 ^3/uL (0.4-5.4) Monocytes # (Auto) 0.7 10 ^3/uL (0-1.3) Eosinophils # (Auto) 0.2 10 ^3/uL (0-0.8) Basophils # (Auto) 0 10 ^3/uL (0-0.2) Nucleated Red Blood Cells 0.1 % Sodium Level 140 mmol/L (136-145) Potassium Level 3.4 mmol/L (3.5-5.1) Chloride Level 105 mmol/L (98-107) Carbon Dioxide Level 27 mmol/L (20-31) Anion Gap 8 (5-15) Blood Urea Nitrogen 10 mg/dL (9-23) Creatinine 1.11 mg/dL (0.700-1.30) Glomerular Filtration Rate Calc 82 mL/min (>90) BUN/Creatinine Ratio 9.0 (10.0-20.0) Serum Glucose 107 mg/dL (74-106) Calcium Level 8.5 mg/dL (8.7-10.4) Total Bilirubin 0.6 mg/dL (0.2-1.0) Aspartate Amino Transferase (AST) 20 U/L (13-40) Alanine Aminotransferase (ALT) 32 U/L (7-40) Alkaline Phosphatase 48 U/L (46-116) Total Protein 6.4 g/dL (5.7-8.2) Albumin 3.9 g/dL (3.2-4.8) Prothrombin Time 10.5 sec (9.3-11.8) Prothrombin Time INR 0.99 (0.9-1.15) Activated Partial Thromboplast Time 23.8 SEC (24.5-34.5) Lipase 28 U/L (12-53) Urine Color Light-yellow (Yellow) Urine Clarity Clear (Clear) Urine pH 5.5 (5.0-9.0) Urine Specific [place] 1.049 (1.001-1.035) Urine Protein Negative (Negative) Urine Ketones Trace (Negative) Urine Blood Negative /uL (Negative) Urine Nitrite Negative (Negative) Urine Bilirubin Negative (Negative) Urine Urobilinogen Normal mg/dL (Negative) Urine Leukocyte Esterase Negative /uL (Negative) Urine RBC 1 /hpf (0 - 3) Urine Microscopic WBC 1 /HPF (0-3) Urine Squamous Epithelial Cells Few /hpf (<5) Urine Bacteria None seen /hpf (None Seen) Urine Hyaline Casts Few /lpf (0 - 2) Urine Mucus Few (None Seen) Urine Glucose Normal mg/dL (Normal) Other Laboratory Tests 09/20/24 04:25 Brief Hx & Hospital Course: 49-year-old male with past medical history of hyperlipidemia who came to the hospital for abdominal pain. Patient states he has been experiencing gallbladder attacks since January 2024. He was seen at this facility in January 2024, and earlier this month for similar complaints. In July he had a similar attack, but it only lasted about 1 hour so he did not come to the hospital. Each time his pain resolved so he was discharged home. Today his pain is not improving and he has leukocytosis. When he was here September 05, 2024, an ultrasound showed cholelithiasis. Patient states he last ate about 1900 last night, he had tacos. His pain began about midnight and has not subsided or improved at all. He has had a couple episodes of vomiting and continues to be nauseated. Came with sepsis and had lap ba admitted on IV abx had lap ba and did well Condition at Discharge: Good Final Diagnosis/Problems List Acute Cholecystitis Discharge Disposition: Home Discharge Instruct/Medications Diet: Regular Activity: No Restrictions, As Tolerated Follow Up/Referral: PCP in 7 d days Medications: augmentin, norco Scheduled Amoxicillin & Pot Clavulanate (Augmentin Tablet), 875 MG PO BID Atorvastatin Calcium (Atorvastatin Calcium), 1 TAB PO HS, (Reported) Hydrocodone-Acetaminophen (Hydrocodone Bitartrate/AC 5-325 mg), 1 TAB PO TID Pantoprazole Sodium Sesquihydr (Pantoprazole Sodium), 40 MG PO DAILY Discharge Statement: "Patient was advised to return to the ER or call 911 if any headaches, dizziness, shortness of breath, chest pain, abdominal pain, bleeding, fevers, or worsening of medical condition. Patient was counseled about treatment plan, medications, possible side effects, patientverbalized understanding. All questions were answered to the best of my ability. This discharge took greater then 30 minutes in planning, reviewing documentation, counseling the patient, and discussing with other team members." ASSESSMENT ASSESSMENT Assessment Acute Cholecystitis Date of Service: Sep 20, 2024 Billing Provider: CEDRICK FUENTES MD Common Visit Codes: [id number]/[id number] DISCH DAY >30min CEDRICK FUENTES MD Sep 20, 2024 12:38
== END 2024-09-20 13:26 | disposition home or self-care (01) | DRG 854 ==
LOC: ER 03:10 → OVERFLOW 07:52 → WEST WING 18:00
PROVIDERS: ADMIT Hospitalist; ATTEND Hospitalist
PROC: 0FT44ZZ Resection of Gallbladder, Percutaneous Endoscopic Approach (ICD-10-PCS; principal; 2024-09-18 15:48)
DX: A41.9 Sepsis, unspecified organism (principal); K80.00 Calculus of gallbladder with acute cholecystitis without obstruction; E78.5 Hyperlipidemia, unspecified; Z96.611 Presence of right artificial shoulder joint; Z96.651 Presence of right artificial knee joint; Z82.49 Family history of ischemic heart disease and other diseases of the circulatory system
CPT/HCPCS: 36415; 71045; 74177; 76700; 80053; 81001; 83690; 85025; 85610; 85730; 96361; 96374; G0378; J2250; J2405; J2470; J2543; J2704; J3490